=== PATIENT | male | born 1955 | race Caucasian/White ===

== ENCOUNTER → 2022-07-17 | Outpatient (CLI) | payer MEDICARE, OTHER ==
[2022-07-17 10:44] LABS: African American GFR (CKD) >90 (>60 ml/min/1.73 sqM); Blood Urea Nitrogen 11 mg/dL (9-20); Non-African American GFR(CKD) >90 (>60 ml/min/1.73 sqM)
--- NOTE | 2022-07-17 14:04 | CT ---
EXAMINATION TYPE: CT angio neck CT DLP: 409.8 mGycm, Automated exposure control for dose reduction was used. DATE OF EXAM: 07/17/2022 11:45 AM COMPARISON: CT chest 10/10/2009. CLINICAL INDICATION:Male, 67 years old with history of I65.29;, c/o high BP TECHNIQUE: Axially acquired helical CT angiogram of the head and neck was obtained with contrast. Axi al images are supplemented with 3D reconstructions [facility] NAS[facility]ET criteria used. Contrast used:100 mL of Isovue 370 with IV Contrast, Oral contrast used: None. FINDINGS: CTA HEAD: No evidence of acute intracranial hemorrhage, mass effect, or midline shift. The ventricles, sulci, a nd cisterns are unremarkable. The visualized portions of the internal carotid arteries, middle cerebral arteries, anterior cerebral arteries, and posterior cerebral arteries are patent. There is atherosclerosis of the petrous portio n of the internal carotid arteries as well as the intracranial portions of internal carotid arteries. Artifact limits evaluation there is felt to be high-grade stenosis The basilar and vertebral arteries are patent. Intracranial atherosclerosis of the vertebral arteries . There is a diminutive intracranial portion of the left vertebral artery is dominant right vertebral artery. CTA NECK: Right Carotid System: The common carotid and external carotid arteries are patent. There is approximately 50-70% stenosis a t the carotid bifurcation secondary to calcified/noncalcified plaquing. The rest of the internal pavon tid artery is patent. Left Carotid System: The common carotid and external carotid arteries are patent. There is approximately 50% stenosis at t he carotid bifurcation secondary to calcified/noncalcified plaquing. The rest of the internal carotid artery is patent. Vertebral arteries are patent without evidence hemodynamically significant stenosis. Atherosclerotic plaque at the origin of the vertebral arteries on the right and left Limited evaluation secondary to blooming artifact. There is a 2 aortic arch. There is common origin of the left common carotid artery and brachycephalic trunk. The origins of the great vessels are patent. No evidence of hemodynamically significant steno sis. IMPRESSION: 1. No evidence of dissection of the cervical internal carotid arteries or vertebral arteries. 2. No evidence of intracranial intracranial aneurysm. 3. Atherosclerotic plaque predominantly calcified bilaterally with 50-70% stenosis of the right pavon tid bifurcation and 50% stenosis of the left. There is associated severe atherosclerotic calcified pl aque in the intracranial portions of the internal carotid arteries. 4. Bilateral vertebral artery atherosclerosis which limits evaluation for the ostium stenosis. Secon herman to motion of blooming artifact. Vertebral arteries are patent.
== END | disposition home or self-care (01) ==
LOC: RADCTMAIN 09:58
PROVIDERS: ATTEND Surgery
DX: I65.23 Occlusion and stenosis of bilateral carotid arteries (principal); I67.2 Cerebral atherosclerosis
CPT/HCPCS: 82565; 84520; 70498; 36415; Q9967

== ENCOUNTER → 2022-10-31 | Outpatient (CLI) | payer MEDICARE, OTHER ==
[2022-10-31 14:52] LABS: HCT 49.6 % (39.0-53.0); HGB 17.7 gm/dL (13.0-17.5); MCH 34.7 pg (25.0-35.0); MCHC 35.7 g/dL (31.0-37.0); MCV 97.3 fL (80.0-100.0); Mean Platelet Volume 8.3; Platelet Count 178 k/uL (150-450); RDW 13.4 % (11.5-15.5); WBC 10.5 k/uL (3.8-10.6)
[2022-10-31 18:30] LABS: BUN/Creat Ratio 14.56 Ratio (12.00-20.00); Blood Urea Nitrogen 13.1 mg/dL (9.0-27.0); Calcium 9.9 mg/dL (8.7-10.3); Chloride 94 mmol/L (96-109); Glucose 104 mg/dL (70-110); Potassium 4.2 mmol/L (3.5-5.5); Sodium 131 mmol/L (135-145)
== END | disposition home or self-care (01) ==
LOC: LABWHC1 12:46
PROVIDERS: ATTEND Nurse Practitioner Acute Care
DX: Z01.810 Encounter for preprocedural cardiovascular examination (principal); R06.02 Shortness of breath
CPT/HCPCS: 36415; 80048; 85027

== ENCOUNTER 2022-11-04 10:22 | Day surgery (SDC) | payer MEDICARE, OTHER ==
[~2022-11-04 10:22] MED LIST: ALPRAZolam 0.25 MG TAB PO PRN; ALPRAZolam 0.5 MG TAB PO PRN; ASPIRIN 325 MG TAB PO STA; NITROGLYCERIN SL TABS 0.4 MG TAB SUBLINGUAL PRN; SODIUM CHLORIDE 0.9% 1,000 ML in EMPTY BAG 1 BAG IV SCH
[2022-11-04 11:19] LABS: Glucose,Whole Blood 111 mg/dL (70-110)
[2022-11-04 11:29] VITALS: TEMP 98.1
[2022-11-04] MEDS ORDERED: SODIUM CHLORIDE 0.9% 1,000 ML IV ONE (11:29)
[2022-11-04] MEDS ORDERED: ASPIRIN 325 MG TAB PO ONE (11:38)
[2022-11-04] MEDS ORDERED: fentaNYL (PF) 50 MCG/ML 2 ML AMP ONE (12:59)
[2022-11-04] MEDS ORDERED: LIDOCAINE 1% INJ 10MG/ML (20 ML MDV) SQ ONE (13:10)
[2022-11-04] MEDS ORDERED: MIDAZOLAM 2 MG/2 ML VIAL IVP ONE (13:10)
[2022-11-04] MEDS ORDERED: fentaNYL (PF) 50 MCG/ML 2 ML AMP IVP ONE (13:10)
[2022-11-04] MEDS ORDERED: VERAPAMIL SYRINGE (5 MG/10 ML) INTRAARTER ONE (13:14)
[2022-11-04] MEDS ORDERED: HEPARIN SODIUM 1,000 UN/ML (10ML VL) ONE (13:15)
[2022-11-04] MEDS ORDERED: HEPARIN SODIUM 1,000 UN/ML (10ML VL) IV ONE (13:16)
[2022-11-04] MEDS ORDERED: IOPAMIDOL-370 100ML BTL INJ ONE (13:22)
--- NOTE | 2022-11-04 15:54 | P.CARDCATH ---
Description of Procedure: PROCEDURES PERFORMED: Left heart catheterization, bilateral coronary angiography, ultrasound guided arterial access INDICATION: Preoperative clearance, inability to perform stress test, chest pain and dyspnea concerning for unstable angina. CONSENT:I have discussed the risks, benefits and alternative therapies for the above-mentioned procedure and for both sedation/analgesia as well as necessary blood product administration, if indicated, as they pertain to this patient. The patient has indicated understanding and acceptance of the risks and procedures discussed. PROCEDURE: After the risks, benefits and alternatives of the above mentioned procedure explained in detail with the patient, informed consent was obtained. Patient was taken to the catheterization lab and prepped and draped in usual fashion. Ultrasound guidance was used to assess for arterial access. 1% lidocaine was used to anesthetize the right radial artery. A 6-Micronesian sheath was placed in the right radial artery using modified Seldinger technique and ultrasound guidance. Left coronary angiography was performed with a 5-Micronesian JL 3.5 catheter and right coronary angiography was performed with a 5-Micronesian JR5 catheter in various views. A 5-Micronesian FR5 catheter was inserted into the left ventricle and pressure measurements were obtained. The right radial sheath was removed and a TR band was placed with hemostasis achieved. The patient tolerated the procedure well. Patient was transported back to the post catheterization holding area in stable condition. Conscious Sedation: Patient was monitored under the direct supervision of myself for conscious sedation using Versed and fentanyl for a total duration of 15 minutes HEMODYNAMICS: Aorta: 152/76 LV: 148/4, LVEDP 16 SELECTIVE CORONARY ARTERIOGRAPHY: LEFT MAIN: The left main is a large caliber vessel which trifurcates into the LAD, ramus and circumflex. There is distal left main 20% stenosis. LEFT ANTERIOR DESCENDING CORONARY ARTERY: LAD is a large caliber vessel which wraps around to the apex. There are mild luminal irregularities and a long tubular 40-50% mid LAD stenosis after a moderate caliber diagonal 1 branch RAMUS INTERMEDIUS: The ramus is a small caliber vessel and has a mid 60-70% stenosis LEFT CIRCUMFLEX CORONARY ARTERY: Left circumflex is a moderate caliber vessel with mild 20-30% stenoses.. RIGHT CORONARY ARTERY: The right coronary artery is a moderate caliber vessel which gives off a PDA and a small PLV branch and is the dominant vessel. There is mild proximal 20-30% RCA stenosis. FINAL IMPRESSION: 1. CAD as described above including 20% left main, 40-50% mid LAD, small caliber ramus 60s 70%, circumflex 20th 30% and RCA 20-30% stenosis 2. High normal left sided filling pressures PLAN: 1. Aggressive risk factor modification per most recent ACC/AHA guidelines. 2. Continue with medical therapy
[2022-11-04 18:03] VITALS: BP 166/76; PULSE 65; RESP 16
== END 2022-11-04 18:00 | disposition home or self-care (01) ==
LOC: CATHCVL 10:22
PROVIDERS: ATTEND Internal Medicine
DX: I25.10 Atherosclerotic heart disease of native coronary artery without angina pectoris (principal); I10 Essential (primary) hypertension; E11.9 Type 2 diabetes mellitus without complications; F10.90 Alcohol use, unspecified, uncomplicated; Z82.49 Family history of ischemic heart disease and other diseases of the circulatory system; Z79.899 Other long term (current) drug therapy
CPT/HCPCS: 93458; 76937; C1769; C1894; J2250; J2001; J3010; J1644; Q9967

== ENCOUNTER 2022-12-04 08:46 | Day surgery (SDC) | payer MEDICARE, OTHER ==
[2022-11-29 10:57] VITALS: BMI 32.2
--- NOTE | 2022-12-02 12:54 | P.HPOR ---
History of Present Illness H&P Date: 12/02/22 Subjective: This is a 67 year old male that presents today for initial evaluation regarding several year, progressively worsening bilateral hand numbness and tingling with associated weakness. He states all of the fingers are involved and the right side is worse than the left. He has noticed that he started dropping things recently and has even sustained cuts on the thumb and not even noticed it due to absent sensation. He denies any recent injury or inciting event. 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 He also complains of a several month history of right middle finger pain, swelling and associated locking and catching. He has tried bracing with little relief. He states the numbness is now constant in the right and left hands. Physical Examination: LUE: AIN/PIN/Radial/Ulnar/Median motor intact. Radial/Ulnar/Median SILT. 2+/4 Radial/Ulnar pulses palpated. 5/5 APB, 5/5 FDI. Negative Finkelsteins, negative CMC grind, positive Durkan's compression. RUE: AIN/PIN/Radial/Ulnar/Median motor intact. Radial/Ulnar/Median SILT. 2+/4 Radial/Ulnar pulses palpated. 0/5 APB, 5/5 FDI. Negative Finkelsteins, negative CMC grind, positive Durkan's compression. Thenar atrophy present. EMG/NCV: EMG and nerve conduction velocity testing performed on 07/02/2022 demonstrates severe right and moderate left carpal tunnel syndrome. Moderate right and mild left cubital tunnel syndrome. Impression: 1.) B/L carpal tunnel syndrome 2.) B/L cubital tunnel syndrome 3.) Right middle finger trigger finger Plan: Diagnosis and treatment options were discussed with the patient. He has failed conservative treatment and would like to pursue surgical intervention in the form of a right endoscopic vs open carpal tunnel release and right open cubital tunnel release and right middle finger A1 sai release. Risks and benefits of surgery including bleeding, infection, damage to surrounding tissue, need for further surgery, possible need to convert to open procedure, residual numbness due to severe nerve compression findings on EMG/NCV were discussed and the patient wished to go forward with surgery. The patient was agreeable with this plan. Medical clearance is requested due to patients multiple medical comorbidities. CC: Vicenta Singh M.D. -Jesus Barrios DO Orthopedic Hand/Upper Extremity Surgeon Past Medical History Past Medical History: Cancer, COPD, Diabetes Mellitus, Hyperlipidemia, Hypertension Additional Past Medical History / Comment(s): back & knee pain., oxygen at 2 L prn., type 2 diabetes, basal cell skin cancer, carotid artery disease History of Any Multi-Drug Resistant Organisms: None Reported Past Surgical History: Heart Catheterization Additional Past Surgical History / Comment(s): basal cell cancer by his eye with skin graft, colonoscopy, heart cath 11/04/22 Past Anesthesia/Blood Transfusion Reactions: No Reported Reaction Additional Past Anesthesia/Blood Transfusion Reaction / Comment(s): never received general anesthesia Past Psychological History: Anxiety Smoking Status: Current every day smoker Past Alcohol Use History: Daily Additional Past Alcohol Use History / Comment(s): currently smokes a few cigarettes /day, hx of 1 1/2 ppd . drinks approx 6 beers/daily Past Drug Use History: None Reported Medications and Allergies Home Medications Medication Instructions Recorded Confirmed Type Albuterol Sulfate [Proair 2 puff INHALATION Q4-6H PRN 10/30/22 11/29/22 History Respiclick] Budesonide-Formot 160-4.5 Mcg 2 puff INHALATION BID PRN 10/30/22 11/29/22 History [Symbicort 160-4.5 Mcg Inhaler] Dulaglutide [Trulicity] 1.5 mg SQ WE 10/30/22 11/29/22 History Furosemide [Lasix] 20 mg PO DAILY 10/30/22 11/29/22 History Metoprolol Tartrate [Lopressor] 50 mg PO BID 10/30/22 11/29/22 History Primidone 25 mg PO HS 10/30/22 11/29/22 History Rosuvastatin [Crestor] 20 mg PO DAILY 10/30/22 11/29/22 History Umeclidinium [place] [Incruse 1 puff INHALATION DAILY 10/30/22 11/29/22 History Ellipta] amLODIPine [Norvasc] 10 mg PO DAILY 10/30/22 11/29/22 History Albuterol Nebulized [Ventolin 2.5 mg INHALATION Q6H PRN 11/29/22 11/29/22 History Nebulized] Aspirin [Adult Low Dose Aspirin EC] 81 mg PO DAILY 11/29/22 11/29/22 History HYDROcodone/APAP 5-325MG [[place] 1 tab PO TID PRN 11/29/22 11/29/22 History 5-325] Losartan Potassium 100 mg PO DAILY 11/29/22 11/29/22 History Vitamin B Complex 1 each PO DAILY 11/29/22 11/29/22 History Allergies Allergy/AdvReac Type Severity Reaction Status Date / Time No Known Allergies Allergy Verified 11/29/22 10:43 Physical Examination Osteopathic Statement: *. No significant issues noted on an osteopathic structural exam other than those noted in the History and Physical/Consult.
[~2022-12-04 08:46] MED LIST changes: -ALPRAZolam 0.25 MG TAB PO PRN; -ALPRAZolam 0.5 MG TAB PO PRN; -ASPIRIN 325 MG TAB PO STA; -NITROGLYCERIN SL TABS 0.4 MG TAB SUBLINGUAL PRN; +Pre Op ABX Message 1 EACH MISC MISCELLANE ONE; -SODIUM CHLORIDE 0.9% 1,000 ML in EMPTY BAG 1 BAG IV SCH
[2022-12-04] MEDS ORDERED: LIDOCAINE 1% (10MG/ML) FOR IV START INTRADERMA PRN (08:58)
[2022-12-04] MEDS ORDERED: LACTATED RINGERS 1,000 ML IV SCH (08:58)
[2022-12-04] MEDS ORDERED: ONDANSETRON 4 MG/2 ML VIAL IVP ONE (08:58)
[2022-12-04] MEDS ORDERED: HYDROmorphone 0.5 MG/0.5 ML SYRINGE IVP PRN (08:58)
[2022-12-04] MEDS ORDERED: droPERidol 5 MG/2 ML VIAL IVP ONE (08:58)
[2022-12-04] MEDS ORDERED: DEXAMETHASONE SOD PHOSPHATE 4 MG/ML 1 ML VIAL IV ONE (08:58)
[2022-12-04] MEDS ORDERED: LIDOCAINE 2% INJ 20 MG/ML (2 ML VIAL) ONE (09:33)
[2022-12-04] MEDS ORDERED: fentaNYL (PF) 50 MCG/ML 2 ML AMP ONE (09:33)
[2022-12-04] MEDS ORDERED: PROPOFOL 10 MG/ML 20 ML VIAL IV ONE (09:33)
[2022-12-04] MEDS ORDERED: MIDAZOLAM 2 MG/2 ML VIAL ONE (09:33)
[2022-12-04] MEDS ORDERED: HYDROmorphone (PF) 1 MG/ML ONE (09:33)
[2022-12-04] MEDS ORDERED: BUPIVACAINE (PF) 0.5% 30 ML VIAL SQ ONE ×3 (09:56→10:23)
[2022-12-04 10:11] LABS: Glucose,Whole Blood 120 mg/dL (70-110)
[2022-12-04 10:41] LABS: Glucose,Whole Blood 118 mg/dL (70-110)
[2022-12-04 10:48] VITALS: TEMP 97.1
--- NOTE | 2022-12-04 10:53 | P.OP ---
Date of Procedure: 12/04/22 Preoperative Diagnosis: 1.) Right carpal tunnel syndrome 2.) Right cubital tunnel syndrome 3.) Right middle finger trigger finger Postoperative Diagnosis: 1.) Right carpal tunnel syndrome 2.) Right cubital tunnel syndrome 3.) Right middle finger trigger finger Procedure(s) Performed: 1.) Right endoscopic carpal tunnel release 2.) Right open cubital tunnel release, in situ 3.) Right middle finger trigger finger A1 sai release Anesthesia: CONSTANTINA Surgeon: Jesus Barrios Rn New Grad #1: Rob Morales Estimated Blood Loss (ml): 0 Pathology: none sent Condition: stable Disposition: PACU Description of Procedure: This is a 67 year old male who presents today for a right endoscopic carpal tunnel release and right middle finger A1 sai release and right open cubital tunnel release after having failed conservative treatment in the past. Risks and benefits of surgery were discussed with the patient including bleeding, damage to surrounding tissue, infection, need to convert to open procedure, need for further surgery as well as risks of anesthesia including pulmonary embolism and even and the patient wished to proceed with surgical intervention. The patients was seen in the pre-operative area by myself. Consent and H&P were completed and updated. The correct extremity was marked in the pre-operative area by myself and all other questions were answered. Operative Narrative: The patient was brought to the operating room by the department of anesthesia. They remained on the portable stretcher and a rolling hand table was brought to the side of the operative extremity. Pre-operative time out was performed indicating the correct patient, procedure and laterality. All in the room agreed. The patient was then drifted off to sleep by the department of anesthesia. MAC anesthesia was utilized and a 50:50 mixture of 1% Lidocaine and 0.5% bupivacaine was injected into the subcutaneous tissues of the palmar skin, 10ccs total. A nonsterile tourniquet was then applied to the operative extremity and the right upper extremity was then prepped and draped in normal sterile fashion. The operative extremity was the exsanguinated with an esmarch bandage and the tourniquet was inflated to 250mmHg. 15 blade scalpel was utilized to make a transverse incision on the palmar skin just ulnar to the palmaris longus tendon at the level of the distal wrist crease. Ragnell retractor was then placed radially and blunt dissection was performed to reveal the distal forearm fascia. This was lifted with fine Rahul pick ups and Littler tenotomy scissors were then used to open the forearm fascia transversely and a double skin hook was then placed. Hamate finder was placed into the carpal tunnel and then sequential sized dilators were inserted followed by the synovial elevator to separate the flexor tenosynovium from the undersurface of the transverse carpal ligament and a washboard texture was felt. The MicroAire endoscopic carpal tunnel release system gun was the then inserted into the carpal tunnel hugging the deep portion of the transverse carpal ligament in line with the base of the ring finger. Transverse fibers of the ligament were directly visualized. Pressure was applied on the palm to reveal the distal extent of the transverse carpal ligament. The blade was then deployed and the distal half of the transverse carpal ligament was released. The scope was then brought distal again and remaining transverse fibers were incised with the blade. The proximal half of the transverse carpal ligament was then divided and again the scope was advanced distal and remaining transverse fibers were incised with the blade. The radial and ulnar leaflets were directly visualized and mobile consistent with complete release. Tenotomy scissors were then utilized to release the remaining distal forearm fascia under direct visualization taking care to preserve the palmar cutaneous branch of the median nerve. Attention was then drawn to the middle finger Transverse incision was made over the A1 sai. Blunt dissection was taken down to the A1 sai and radial and ulnar digital nerves were identified and carefully retracted. The A1 sai was then released from proximally to distally with scissors. The finger was then ranged and no locking was appreciated. Attention was brought to the medial elbow. 15 blade scalpel was used to incise skin in between the medial epicondyle and olecranon in a curvlinear and longitudinal fashion. Blunt dissection was taken down through subcutaneous tissue with tenotomy scissors and branches of the MABCN were identified and protected. Dissection was carried proximally and the ulnar nerve was identified and released in it's entirety from surrounding soft tissue. Dissection was then carried distally and freitas's ligament was released at the medial epicondyle, the nerve appeared compressed at this location. Dissection was then carried out further distal and the fascia of the two heads of the FCU were incised and the ulnar nerve was decompressed with Padmini and tenotomy scissors and appeared to be tension free. The elbow was the flexed and extended and the ulnar nerve appeared to be stable in a tension free manner. 20cc's of 0.5% bupivacaine was injected into the subcutaneous tissues of the palmar skin and medial elbow. Skin closure was performed with interrupted 4-0 Monocryl suture followed by 4-0 nylon suture in the hand. Sterile dressing was applied consisting of adaptic, 4x4s, Webril, and an lino bandage. Tourniquet was let down and the hand immediately was well perfused. The patient was then woken by the department of anesthesia and transferred to PACU in stable condition. Rob DIAZ was present for the case in its entirety and assisted in major portions of the case and protection of vital neurovascular structures. Jesus Barrios D.O. Orthopedic Hand/Upper Extremity Surgeon
[2022-12-04 11:36] VITALS: RESP 18
[2022-12-04 11:52] VITALS: BP 158/82; PULSE 69
== END 2022-12-04 12:05 | disposition home or self-care (01) ==
LOC: OR 08:46
PROVIDERS: ATTEND Orthopaedic Surgery Hand Surgery
DX: G56.03 Carpal tunnel syndrome, bilateral upper limbs (principal); G56.23 Lesion of ulnar nerve, bilateral upper limbs; M65.331 Trigger finger, right middle finger; E11.9 Type 2 diabetes mellitus without complications; E78.5 Hyperlipidemia, unspecified; I10 Essential (primary) hypertension; J44.9 Chronic obstructive pulmonary disease, unspecified; F17.210 Nicotine dependence, cigarettes, uncomplicated; F10.90 Alcohol use, unspecified, uncomplicated; Z85.828 Personal history of other malignant neoplasm of skin; Z98.890 Other specified postprocedural states; Z79.51 Long term (current) use of inhaled steroids
CPT/HCPCS: 29848; 64718; 26055; J2250; J1100; J2405; J3010; J1170; J2704; J2001; J0665

== ENCOUNTER → 2023-02-28 | Outpatient (CLI) | payer MEDICARE, OTHER ==
[2023-02-28 14:07] LABS: African American GFR (CKD) >90 (>60 ml/min/1.73 sqM); Blood Urea Nitrogen 14 mg/dL (9-20); Non-African American GFR(CKD) >90 (>60 ml/min/1.73 sqM)
--- NOTE | 2023-02-28 15:26 | CT ---
EXAMINATION TYPE: CT angio neck DATE OF EXAM: 02/28/2023 HISTORY: carotid stenosis COMPARISON: 07/17/2022 CT DLP: 364.3 mGycm. Automated Exposure Control for Dose Reduction was Utilized. TECHNIQUE: CTA scan of the head and neck is performed with IV Contrast, patient injected with 100 mL of Isovue 370, axial images are obtained, coronal and sagittal reformatted images are reviewed. 3D r econstructed images are created on an independent workstation and reviewed. FINDINGS: The brachiocephalic origins are widely patent. There is marked calcified plaque formation in the carotid bifurcations and proximal internal carotid arteries resulting in severe greater than 70% proximal internal carotid artery stenoses bilaterally. The vertebral arteries are widely patent and the right vertebral artery slightly dominant to the left . There is calcification involving the petrous portions of the internal carotid arteries. There is a se sunshine stenosis in the right carotid siphon which is not imaged in its entirety. IMPRESSION: 1. Severe greater than 70% proximal internal carotid artery stenoses. 2. Severe stenosis of the right carotid siphon. 3. Interval worsening of the carotid stenoses bilaterally. Previously, both stenoses were less than 70%
== END | disposition home or self-care (01) ==
LOC: RADCTMAIN 13:27
PROVIDERS: ATTEND Surgery
DX: I65.23 Occlusion and stenosis of bilateral carotid arteries (principal)
CPT/HCPCS: 82565; 84520; 70498; 36415; Q9967

== ENCOUNTER → 2023-04-08 | Outpatient (CLI) | payer MEDICARE, OTHER ==
[2023-04-08 12:24] LABS: African American GFR (CKD) >90 (>60 ml/min/1.73 sqM); Blood Urea Nitrogen 11 mg/dL (9-20); Non-African American GFR(CKD) >90 (>60 ml/min/1.73 sqM)
--- NOTE | 2023-04-13 08:32 | CT ---
EXAMINATION TYPE: CT angio neck DATE OF EXAM: 04/08/2023 1:39 PM CLINICAL INDICATION:Male, 68 years old with history of I65.29 OCCLUSION AND STENOSIS; OCCLUSION AND S TENOSIS COMPARISON: CT angiogram neck 02/28/2023 and 07/17/2022 TECHNIQUE: Axially acquired helical CT Angiogram of the Neck was obtained with and without contrast u tilizing 75 mL of Isovue-370 administered intravenously. Axial images are supplemented with coronal a nd sagittal MIP reconstructions. 3D reconstructions were also performed and were post-processed at an independent workstation. Estimated carotid stenosis was calculated using the NASCET criteria. CT DLP: 440.8 mGycm, Automated exposure control for dose reduction was used. Contrast used:85ml mL of Isovue 300 with IV Contrast, Oral contrast used: , None. FINDINGS: Aortic arch is patent without evidence of dissection flap. Bovine arch configuration with a common or igin of the brachiocephalic artery and left common carotid. Mild/moderate mixed atherosclerotic disease of the aorta. Ascending aorta is ectatic up to 3.5 cm. De scending aorta is 2.5 cm. Atherosclerotic disease of the proximal branch vessels without significant stenosis seen. Calcified plaque at the origins of both vertebral artery origins limits accurate measurements of poss ible stenosis, however seems to at least 50% bilaterally. Vertebrals thereafter appear patent through out the neck. The right is dominant. There is mixed primarily calcified plaque in the V4 segment of t he right vertebral, with maximal diameter stenosis about 50%. There is moderate primarily calcified p laque in the proximal V4 segment on the left without significant stenosis. In its mid to distal porti on however there appears to be a significant stenosis around image 128 series 4, with the vessel ther eafter diminutive before entering into the basilar artery. Basilar appears normally patent, bifurcati on is patent without evidence of basilar tip aneurysm. Proximal jacquard card lacer appear patent as seen. Pulmonary trunk is 3.3 cm, considered enlarged and can be seen with pulmonary hypertension. No dissection or pseudoaneurysm seen throughout the carotid or vertebral arteries. Right Carotid System: Common carotid is normally patent to the bifurcation. There is heavy mixed primarily calcified plaque in the distal common carotid and proximal internal carotid with the ICA lumen appearing maximally na rrowed to 1.4 mm. Compared to the more normal distal ICA measurement 5.2 mm, this is a 73% diameter s tenosis. The remainder of the cervical ICA shows mild scattered plaque without significant stenosis. There is diffuse atherosclerotic calcification throughout the petrous portion with under 50% stenosis . Heavy calcification in the cavernous portion with degree of stenosis difficult to precisely measure but seems over 50%. Supraclinoid ICA appears patent as seen with the right MCA and TONG only partiall y imaged but appear patent. Mild to moderate mixed plaque at the ECA origin with under 50% stenosis. Left Carotid System: Mild disease in the proximal common carotid artery without significant stenosis seen. There appears t o be soft plaque in the mid common carotid with under 50% stenosis. Mixed plaque predominantly calcif ied in the mid to distal common carotid with heavy calcification at the carotid bifurcation and proxi mal ICAr ICA appears maximally narrowed to 1.1 mm. Compared to the more normal distal ICA measurement 5.7 mm, this is an 81% diameter stenosis. ICA is then patent to the skull base, with mild atheroscle rotic disease. There is diffuse atherosclerotic calcification throughout the petrous portion with und er 50% stenosis. Heavy calcification of the cavernous portion with degree of stenosis difficult to pr ecisely measure but does not appear greater than 50%. Supraclinoid ICA appears patent. MCA and TONG ar e only partially imaged but grossly patent. Mild to moderate mixed plaque at the ECA origin with unde r 50% stenosis. Other: Grossly unremarkable neck soft tissues. Mild emphysematous changes and scarring in the lung apices. No consolidation or pneumothorax. There i s mild to moderate multilevel degenerative disk disease and facet arthrosis in the cervical spine wit h mild to moderate neural foraminal stenoses and no critical bony canal stenosis seen. Straightening of the normal cervical lordosis likely related to degenerative changes. Patient is edentulous. No susan dence of acute bony pathology. IMPRESSION: CTA neck: 1. Diffuse atherosclerotic disease, as described. 2. Atherosclerotic plaque, mostly calcified bilaterally, with 73% stenosis of the right proximal ICA and 81% stenosis of the left proximal ICA. 3. Heavy calcified plaque in the visualized petrous and cavernous portions of the internal carotid a rteries. 4. Calcified plaque at the origins of both vertebral artery origins limits accurate measurements of possible stenosis, however seems to at least 50% bilaterally. 5. Mixed primarily calcified plaque in the intracranial segment of the right vertebral, with maximal diameter stenosis about 50%. 6. Proximal intracranial left vertebral artery shows moderate primarily calcified plaque without sig nificant stenosis. In its mid to distal portion however there appears to be a significant stenosis, w ith the vessel thereafter diminutive before entering into the basilar artery.
== END | disposition home or self-care (01) ==
LOC: RADCTMAIN 11:51
PROVIDERS: ATTEND Surgery
DX: I65.23 Occlusion and stenosis of bilateral carotid arteries (principal)
CPT/HCPCS: 82565; 84520; 70498; 36415; Q9967

== ENCOUNTER → 2023-06-04 | Outpatient (CLI) | payer MEDICARE ==
[2023-06-04 15:50] LABS: Basophils # (A) 0.07 X 10*3/uL (0.00-0.10); Basophils % (A) 0.8 %; Eosinophils # (A) 0.08 X 10*3/uL (0.04-0.35); Eosinophils % (A) 0.9 %; HCT 46.5 % (39.6-50.0); HGB 16.4 g/dL (13.0-17.0); Lymphocytes # (A) 1.64 X 10*3/uL (0.90-5.00); MCH 32.6 pg (27.0-32.0); MCHC 35.3 g/dL (32.0-37.0); MCV 92.4 FL (80.0-97.0); Mean Platelet Volume 10.9 FL (9.5-12.2); Monocytes # (A) 0.87 X 10*3/uL (0.20-1.00); Monocytes % (A) 9.5 %; NRBC Per 100 WBC 0 X 10*3/uL (0.00-0.01); Neutrophils # (A) 6.44 X 10*3/uL (1.80-7.70); Neutrophils % (A) 70.6 %; Platelet Count 208 X 10*3/uL (140-440); RBC 5.03 X 10*6/uL (4.40-5.60); RDW 12.6 % (11.5-14.5); WBC 9.12 X 10*3/uL (4.50-10.00)
== END | disposition home or self-care (01) ==
LOC: LABPAT 09:56
PROVIDERS: ATTEND Surgery
DX: Z01.812 Encounter for preprocedural laboratory examination (principal); I65.29 Occlusion and stenosis of unspecified carotid artery
CPT/HCPCS: 36415; 84132; 85025; 86850; 86900; 86901

== ENCOUNTER 2023-06-05 05:41 | Inpatient (IN) | payer MEDICARE, OTHER ==
[2023-06-03 14:34] VITALS: BMI 31.1
[2023-06-05] MEDS: LIDOCAINE 1% (10MG/ML) FOR IV START INTRADERMA PRN (06:45)
[2023-06-05] MEDS: LACTATED RINGERS 1,000 ML IV SCH (06:45)
[2023-06-05] MEDS: DEXAMETHASONE SOD PHOSPHATE 4 MG/ML 1 ML VIAL IV ONE (06:46)
[2023-06-05] MEDS: ONDANSETRON 4 MG/2 ML VIAL IVP ONE (06:47)
[2023-06-05 06:52] LABS: Glucose,Whole Blood 127 mg/dL (70-110)
[2023-06-05] MEDS: MIDAZOLAM 2 MG/2 ML VIAL IV PRN (06:57)
[2023-06-05] MEDS ORDERED: HYDROmorphone 0.5 MG/0.5 ML SYRINGE IVP PRN (07:00)
[2023-06-05] MEDS ORDERED: PROTAMINE SULFATE 10 MG/ML 5 ML VIAL ONE (07:22)
[2023-06-05] MEDS ORDERED: SUCCINYLCHOLINE CHLORIDE 200 MG/10 ML VIAL IV ONE (07:22)
[2023-06-05] MEDS ORDERED: PHENYLEPHRINE 10 MG/ML VIAL ONE (07:22)
[2023-06-05] MEDS ORDERED: HEPARIN SODIUM,PORCINE 10,000 UNIT/ML 1 ML VIAL ONE (07:22)
[2023-06-05] MEDS ORDERED: ROCURONIUM 10 MG/ML (5 ML VIAL) IV ONE (07:22)
[2023-06-05] MEDS ORDERED: LIDOCAINE 1% INJ 10MG/ML (20 ML MDV) ONE (07:22)
[2023-06-05] MEDS ORDERED: LABETALOL 5 MG/ML VIAL MDV ONE (07:22)
[2023-06-05] MEDS ORDERED: SUGAMMADEX SODIUM 200 MG/2 ML SDV IV ONE (07:22)
[2023-06-05] MEDS ORDERED: fentaNYL (PF) 50 MCG/ML 2 ML AMP ONE (07:22)
[2023-06-05] MEDS ORDERED: PHENYLEPHRINE-0.9% NACL SYG 1,000 MCG/10 ML SYRINGE ONE (07:22)
[2023-06-05] MEDS ORDERED: PROPOFOL 10 MG/ML 20 ML VIAL IV ONE (07:22)
[2023-06-05] MEDS ORDERED: GLYCOPYRROLATE 0.2 MG/ML 2 ML VIAL ONE (07:22)
[2023-06-05] MEDS: THROMBIN (BOVINE) 5,000 UNIT VIAL TOPICAL ONE (08:35)
[2023-06-05] MEDS: LIDOCAINE 1% INJ 10MG/ML (20 ML MDV) SQ ONE (08:35)
[2023-06-05] MEDS: GELATIN SPONGE,ABSORB (LARGE) 1 EACH SPONGE TOPICAL ONE (08:35)
[2023-06-05] MEDS: LACTATED RINGERS 1,000 ML IV ONE (10:21)
[2023-06-05] MEDS ORDERED: BENZOCAINE/MENTHOL LOZENG 1 EACH LOZENGE MUCOUS MEM PRN (10:29)
[2023-06-05] MEDS ORDERED: MAG HYDROX/AL HYDROX/SIMETH 30 ML CUP PO PRN (10:29)
--- NOTE | 2023-06-05 10:29 | P.OP ---
Date of Procedure: 06/05/23 Description of Procedure: Preoperative Diagnosis: High-grade left internal carotid artery stenosis Postoperative Diagnosis: Same Procedure: Left carotid endarterectomy with patch angioplasty Anesthesia: GET Surgeon: Shabnam Chang DO Estimated Blood Loss (ml): 50 cc IV Fluids: See records Urine Output: See records Specimen: Left carotid plaque Condition: stable Disposition: PACU Findings and indications: Patient is a 68-year-old male with peripheral vascular disease who on workup and imaging was found to have high-grade left internal carotid artery stenosis and due to this he was recommended to undergo intervention. Due to the anatomy, an open carotid endarterectomy was recommended. Risks and benefits have been discussed he seemingly understood and was willing to proceed. Procedure in detail: After written informed consent was obtained the patient the patient is brought to the operative suite and laid in a supine position. The area of the neck was prepped and draped in usual sterile fashion after appropriate anesthetic was performed per the anesthesiologist. A timeout was performed in normal fashion antibiotics were administered prior to incision. An oblique incision was then created just anterior to the sternocleidomastoid musculature with a 10 blade scalpel and dissection was carried down to the carotid sheath. The carotid sheath was then entered after facial vein was located and suture ligated in normal fashion. This was time-consuming and difficult due to the significantly shortened neck and deep carotid. The the common carotid, internal carotid, external carotid and superior thyroid arteries were located and dissected free in a meticulous fashion circumferentially and controlled with vessel loops. Attention was then placed to locating the vagus nerve which was directly adherent to the carotid, as well as hypoglossal nerve which were both spared. Once controlled, patient was administered heparin and followed with ACTs for appropriate heparinization. Once ACT was appropriate, the proximal and distal aspects of the dissection were then controlled with vascular clamps. Arteriotomy was then created with 11 blade scalpel and extended with Sheffield Del Toro scissors. Cerebral oximetry was used and found to have no significant drop therefore No shunt was required. An endarterectomy was then performed with a Spencer elevator. The plaque was transected proximally and then feathered at the distal aspect of the internal carotid artery and removed. The area was copiously irrigated with heparinized saline and all free debris was removed. A 0.8 x 8 cm bovine pericardial patch was then chosen and patch angioplasty was performed with 6-0 Prolene suture in a running fashion. Prior to last sutures being placed the inflow was released flushing any free debris out of the patch. This was reclamped and the internal carotid artery was released revealing good brisk flow and was once again reclamped. The external carotid and superior thyroid artery were then released followed by the common carotid artery to allow any free debris to be flushed into the external system. Final sutures were placed and secured. Internal carotid artery control was then released. Good pulsatile flow was noted through the patch and a Doppler was utilized demonstrating good brisk flow into the internal, external carotid arteries without any signs of obstruction. Hemostasis was then assured with interrupted sutures of 6-0 Prolene as well as thrombin and Gelfoam. A 10-Wolof NORA drain was then placed in normal fashion and secured with 3-0 nylon suture. The incision was then closed in a multilayer fashion after hemostasis was assured. The skin was then cleansed and dressings were placed. Patient tolerated the procedure well and was following commands and moving all extremities. At the time of wake-up he was thrashing significantly and moving his neck however there is no apparent hematoma created at this time. And the drain remains minimal. Patient was then sent to PACU for recovery.
[2023-06-05] MEDS: HYDROmorphone 0.5 MG/0.5 ML SYRINGE IVP ONE ×2 (11:00→11:18)
[2023-06-05 11:28] LABS: Glucose,Whole Blood 152 mg/dL (70-110)
[2023-06-05] MEDS: HYDROcodone/APAP 5-325MG 1 EACH TAB PO PRN (13:18)
--- NOTE | 2023-06-05 13:18 | P.ANPRN ---
Procedure Note - Anesthesia - Invasive Line Right Arterial Line Time Out Performed: Yes (0705) Date of Procedure: 06/05/23 Time of Procedure: 07:05 Location of Patient: PreOp Preparation: Sterile Prep, Sterile Dressing Arterial Line Location: Radial Ultrasound Used: No Narrative: Invasive line placement per sterile protocol utilized. A 20-gauge right radial cannulation placed with one attempt. Secured with suture, and Biopatch disc placed, and secured with Tegaderm.
[2023-06-05] MEDS ORDERED: ALBUTEROL NEBULIZED 2.5 MG/3 ML INHALATION PRN (13:21)
[2023-06-05] MEDS: ALBUTEROL NEBULIZED 2.5 MG/3 ML INHALATION PRN (15:51)
[2023-06-05] MEDS: MORPHINE SULFATE 2 MG/ML SYRINGE IVP PRN (15:55)
[2023-06-05] MEDS: HEPARIN SODIUM,PORCINE 5,000 UNIT/ML 1 ML VIAL SQ SCH (15:56)
--- NOTE | 2023-06-05 16:31 | P.CONS ---
History of Present Illness - Reason for Consult Consult date: 06/05/23 - History of Present Illness Angel Roy, is a 68-year-old male who was admitted to [facility] by Dr. Chang and underwent left carotid endarterectomy on 06/05/2023 i his past medical history significant for history of hypertension, history of hyperlipidemia, history of COPD, history of basal cell carcinoma, history of diabetes mellitus type 2, history of gastroesophageal reflux disease, history of vitamin D deficiency. On review of systems patient was evaluated on the medical floor postoperatively he is alert and oriented 3 in no apparent distress he denies any complaints at this time there is no fever or chills no headache or dizziness no chest pain no shortness of breath no cough no nausea or vomiting no abdominal pain no diarrhea no blood in the stools no burning with urination no frequency or urgency and no hematuria. His no weakness or numbness in any of the extremities there is no change in vision speech or gait. Past Medical History Past Medical History: Cancer, COPD, Diabetes Mellitus, Hyperlipidemia, Hypertension Additional Past Medical History / Comment(s): blocked arteries, basal cell skin ca ,uses home O2 @ 2L NC as needed at nighttime. History of Any Multi-Drug Resistant Organisms: None Reported Past Surgical History: Heart Catheterization Additional Past Surgical History / Comment(s): basal cell by eye with skin graft, colonoscopy Past Anesthesia/Blood Transfusion Reactions: No Reported Reaction Additional Past Anesthesia/Blood Transfusion Reaction / Comm: no blood tx hx Smoking Status: Current every day smoker - Past Family History Brother(s) Family Medical History: Cancer Additional Family Medical History / Comment(s): 2 brother prostate, 1 copd pulm htn all Medications and Allergies Home Medications Medication Instructions Recorded Confirmed Type Albuterol Sulfate [Proair 2 puff INHALATION Q4-6H PRN 10/30/22 06/05/23 History Respiclick] Dulaglutide [Trulicity] 1.5 mg SQ WE 10/30/22 06/05/23 History Furosemide [Lasix] 20 mg PO DAILY 10/30/22 06/05/23 History Metoprolol Tartrate [Lopressor] 50 mg PO BID 10/30/22 06/05/23 History Primidone 50 mg PO HS 10/30/22 06/05/23 History Rosuvastatin [Crestor] 20 mg PO DAILY 10/30/22 06/05/23 History amLODIPine [Norvasc] 10 mg PO QAM 10/30/22 06/05/23 History Albuterol Nebulized [Ventolin 2.5 mg INHALATION TID PRN 11/29/22 06/05/23 History Nebulized] Aspirin [Adult Low Dose Aspirin EC] 81 mg PO HS 11/29/22 06/05/23 History HYDROcodone/APAP 5-325MG [[place] 1 tab PO TID PRN 11/29/22 06/05/23 History 5-325] Losartan Potassium 100 mg PO QAM 11/29/22 06/05/23 History Umeclidinium [place] [Incruse 1 puff INHALATION QAM 06/03/23 06/05/23 History Ellipta] Allergies Allergy/AdvReac Type Severity Reaction Status Date / Time iodine Allergy Nausea & Verified 06/03/23 14:09 Vomiting Physical Exam Vitals: Vital Signs Temp Pulse Resp BP BP Pulse Ox 06/05/23 11:14 67 16 139/69 92 L 06/05/23 10:59 68 16 144/73 93 L 06/05/23 10:42 73 16 155/80 93 L 06/05/23 10:27 98.2 F 75 16 158/60 96 06/05/23 07:09 52 L 18 158/72 95 06/05/23 06:28 97.4 F L 52 L 22 160/75 142/68 97 Intake and Output 06/04/23 06/05/23 06/05/23 22:59 06:59 14:59 Intake Total 200 1250 Output Total 400 Balance 200 850 Intake: IV 200 1250 Output: Urine 350 Estimated Blood Loss 50 Other: Weight 95.5 kg In general patient is alert and oriented x 3 in no distress HEENT head normocephalic and atraumatic Neck is supple no JVD no goiter no lymphadenopathy no carotid bruit, there is a drainage tube from the left neck. Chest examination is clear to auscultation no crackles no wheezing Cardiac exam reveals regular heart sounds S1 and S2 no gallops no murmurs Abdomen is soft nontender no organomegaly with normal bowel sounds Extremity exam reveals no edema no cyanosis or clubbing Neurological examination reveals no gross focal deficits Results Labs: Abnormal Lab Results - Last 24 Hours (Table) 06/05/23 Range/Units 06:43 POC Glucose (mg/dL) 127 H (70-110) mg/dL Assessment and Plan Plan: Critical stenosis left carotid artery status post left carotid endarterectomy on 06/05/2023 Underlying history of hypertension Underlying history of hyperlipidemia Underlying history of COPD Underlying history of diabetes mellitus type 2 Underlying history of basal cell carcinoma with surgical removal and skin graft on left side of the face Underlying history of coronary artery disease with previous history of cardiac catheterization Prolonged history of tobacco abuse At this time patient is admitted to medical floor Home medications reviewed and reordered Will follow during this hospitalization for medical management
[2023-06-05 16:49] LABS: Glucose,Whole Blood 259 mg/dL (70-110)
[2023-06-05] MEDS: INSULIN ASPART (NovoLOG) 100 UNIT/ML VIAL SQ SCH (17:01)
[2023-06-05 20:10] LABS: Glucose,Whole Blood 177 mg/dL (70-110)
[2023-06-05] MEDS: ASPIRIN 81 MG PO SCH (20:34)
[2023-06-05] MEDS: PRIMIDONE 50 MG TAB PO SCH (20:34)
[2023-06-05] MEDS: METOPROLOL TARTRATE 50 MG TAB PO SCH (20:35)
[2023-06-05] MEDS: NICOTINE 21MG/24HR PATCH TRANSDERM SCH (20:35)
[2023-06-06 06:06] LABS: Glucose,Whole Blood 138 mg/dL (70-110)
[2023-06-06] MEDS: CLOPIDOGREL 75 MG TAB PO SCH (08:15)
[2023-06-06] MEDS: ATORVASTATIN 40 MG TAB PO SCH (08:15)
[2023-06-06] MEDS: FUROSEMIDE 20 MG TAB PO SCH (08:15)
[2023-06-06] MEDS: LOSARTAN 50 MG TAB PO SCH (08:15)
[2023-06-06] MEDS: amLODIPine 10 MG TAB PO SCH (08:15)
[2023-06-06] MEDS: IPRATROPIUM 0.5 MG/2.5 ML NEBU INHALATION SCH (08:25)
[2023-06-06] MEDS ORDERED: ASPIRIN 81 MG PO SCH (09:00)
[2023-06-06 09:30] LABS: Basophils % (A) 0 %; Eosinophils # (A) 0.1 k/uL (0-0.7); Eosinophils % (A) 1 %; HCT 44.2 % (39.0-53.0); HGB 15.6 gm/dL (13.0-17.5); Lymphocytes # (A) 1.5 k/uL (1.0-4.8); Lymphocytes % (A) 11 %; MCH 33.7 pg (25.0-35.0); MCHC 35.2 g/dL (31.0-37.0); MCV 95.7 fL (80.0-100.0); Mean Platelet Volume 8.8; Monocytes % (A) 7 %; Neutrophils # (A) 10.5 k/uL (1.3-7.7); Neutrophils % (A) 80 %; Platelet Count 187 k/uL (150-450); RBC 4.62 m/uL (4.30-5.90); RDW 13.3 % (11.5-15.5); WBC 13.3 k/uL (3.8-10.6)
[2023-06-06 09:42] LABS: ALT 18 U/L (4-49); AST 27 U/L (17-59); African American GFR (CKD) >90 (>60 ml/min/1.73 sqM); Albumin 4.1 g/dL (3.5-5.0); Alkaline Phosphatase 90 U/L (38-126); Anion Gap 7 mmol/L; Blood Urea Nitrogen 15 mg/dL (9-20); Calcium 9.2 mg/dL (8.4-10.2); Carbon Dioxide 29 mmol/L (22-30); Chloride 95 mmol/L (98-107); Glucose 131 mg/dL (74-99); Non-African American GFR(CKD) >90 (>60 ml/min/1.73 sqM); Potassium 4.8 mmol/L (3.5-5.1); Sodium 131 mmol/L (137-145); Total Bilirubin 0.5 mg/dL (0.2-1.3); Total Protein 6.7 g/dL (6.3-8.2)
--- NOTE | 2023-06-06 10:46 | P.PN ---
Subjective Progress Note Date: 06/06/23 Principal diagnosis: Carotid stenosis Patient is seen and examined today as a follow-up. He is postop day #1 for left carotid endarterectomy. He has a history of hypertension and blood pressures have been mildly elevated. Medical team is following for blood pressure management. Patient denies any focal deficits. He has been up and ambulating. He has been voiding. No difficulty with swallowing. He did have about 75 mL of sanguinous drainage from NORA drain through the night. Another 20 mL this morning. He denies any shortness of breath or chest pain. He has been af ebrile. Objective - Vital Signs Vital signs: Vital Signs Temp 97.4 F L 06/06/23 08:15 Pulse 70 06/06/23 08:36 Resp 18 06/06/23 08:15 BP 180/78 06/06/23 08:15 Pulse Ox 94 L 06/06/23 08:15 FiO2 Intake & Output 06/05/23 06/06/23 06/06/23 18:59 06:59 18:59 Intake Total 1950 720 Output Total 1080 75 Balance 870 -75 720 Weight 95.5 kg Intake: IV 1950 Oral 720 Output: Drainage 30 75 Left Neck 30 75 Urine 1000 Uretheral (Chang) 250 Estimated Blood Loss 50 Other: Voiding Method Indwelling Catheter Toilet Indwelling Catheter # Voids 1 - Exam General appearance: The patient is alert, oriented, appears in no acute distress. HET: Head is normocephalic and atraumatic. Pupils are equal and reactive. Neck: Supple. Left neck with incision well-approximated, mild swelling surrou nding incision, soft. NORA drain in place with sanguinous drainage. Heart: Regular. Lungs: Equal expansion, normal respiratory effort. Abdomen: Soft, nontender, nondistended. Extremities: Normal skin color and turgor. Neurological: No focal deficits. Strength and sensation are grossly intact. - Labs CBC & Chem 7: 06/06/23 08:57 06/06/23 08:57 Labs: Abnormal Lab Results - Last 24 Hours (Table) 06/05/23 06/05/23 06/05/23 Range/Units 11:25 16:47 20:09 POC Glucose (mg/dL) 152 H 259 H 177 H (70-110) mg/dL 06/06/23 Range/Units 06:05 POC Glucose (mg/dL) 138 H (70-110) mg/dL Assessment and Plan Assessment: 1. High-grade left internal carotid artery stenosis status post left carotid endarterectomy with patch angioplasty 2. Hypertension 3. COPD, uses oxygen at home generally at night as needed 4. Diabetes mellitus Plan: 1. Encourage ambulation 2. Keep NORA drain in for now, monitor output 3. Recommend smoking cessation, nicotine patch currently on. Patient declines needing any for discharge as he states he has some at home 4. Monitor blood pressures, defer medical management to primary medical team 5. Possible discharge later today The impression and plan of care has been dictated as directed. Dr. Chang I performed a history and examination of this patient, discussed the same with the dictator. I agree with the dictator's note ,documented as a scribe. Any additional findings or plans will be noted.
[2023-06-06 11:33] LABS: Glucose,Whole Blood 129 mg/dL (70-110)
[2023-06-06] MEDS ORDERED: IPRATROPIUM-ALBUTEROL 3 ML NEB INHALATION PRN (11:39)
[2023-06-06] MEDS ORDERED: LORazepam 1 MG TAB PO PRN (13:44)
[2023-06-06] MEDS: hydrALAZINE HCL 25 MG TAB PO SCH (14:06)
--- NOTE | 2023-06-06 14:15 | P.PN ---
Subjective Progress Note Date: 06/06/23 Angel Roy, is a 68-year-old male who was admitted to [facility] by Dr. Chang and underwent left carotid endarterectomy on 06/05/2023 His past medical history significant for history of hypertension, history of hyperlipidemia, history of COPD, history of basal cell carcinoma, history of diabetes mellitus type 2, history of gastroesophageal reflux disease, history of vitamin D deficiency. On review of systems patient was evaluated on the medical floor postoperatively he is alert and oriented 3 in no apparent distress he denies any complaints at this time there is no fever or chills no headache or dizziness no chest pain no shortness of breath no cough no nausea or vomiting no abdominal pain no diarrhea no blood in the stools no burning with urination no frequency or urgency and no hematuria. His no weakness or numbness in any of the extremities there is no change in vision speech or gait. On 06/06/2023 patient was seen and examined on the medical floor he is alert and oriented 3 in no apparent distress there is no fever or chills no headache or dizziness no chest pain no shortness of breath no cough no nausea or vomiting no abdominal pain no diarrhea and no urinary symptoms. Patient is still having copious bloody discharge from his left neck drainage tube. Blood pressure is significantly elevated and today I added hydralazine 25 mg by mouth 3 times daily, will continue to follow for 24 more hours as inpatient Objective - Vital Signs Vital signs: Vital Signs Temp 97.4 F L 06/06/23 08:15 Pulse 70 06/06/23 08:36 Resp 20 06/06/23 08:40 BP 180/78 06/06/23 08:15 Pulse Ox 94 L 06/06/23 08:15 FiO2 Intake & Output 06/05/23 06/06/23 06/06/23 18:59 06:59 18:59 Intake Total 1950 720 Output Total 1080 75 10 Balance 870 -75 710 Weight 95.5 kg Intake: IV 1950 Oral 720 Output: Drainage 30 75 10 Left Neck 30 75 10 Urine 1000 Uretheral (Chang) 250 Estimated Blood Loss 50 Other: Voiding Method Indwelling Catheter Toilet Toilet Indwelling Catheter # Voids 1 - Exam In general patient is alert and oriented x 3 in no distress HEENT head normocephalic and atraumatic Neck is supple no JVD no goiter no lymphadenopathy no carotid bruit, there is a drainage tube from the left neck. Chest examination is clear to auscultation no crackles no wheezing Cardiac exam reveals regular heart sounds S1 and S2 no gallops no murmurs Abdomen is soft nontender no organomegaly with normal bowel sounds Extremity exam reveals no edema no cyanosis or clubbing Neurological examination reveals no gross focal deficits - Labs CBC & Chem 7: 06/06/23 08:57 06/06/23 08:57 Labs: Abnormal Lab Results - Last 24 Hours (Table) 06/05/23 06/05/23 06/05/23 Range/Units 11:25 16:47 20:09 WBC (3.8-10.6) k/uL Neutrophils # (1.3-7.7) k/uL Sodium (137-145) mmol/L Chloride (98-107) mmol/L Glucose (74-99) mg/dL POC Glucose (mg/dL) 152 H 259 H 177 H (70-110) mg/dL 06/06/23 06/06/23 06/06/23 Range/Units 06:05 08:57 08:57 WBC 13.3 H (3.8-10.6) k/uL Neutrophils # 10.5 H (1.3-7.7) k/uL Sodium 131 L (137-145) mmol/L Chloride 95 L (98-107) mmol/L Glucose 131 H (74-99) mg/dL POC Glucose (mg/dL) 138 H (70-110) mg/dL Assessment and Plan Plan: Critical stenosis left carotid artery status post left carotid endarterectomy on 06/05/2023 Underlying history of hypertension Underlying history of hyperlipidemia Underlying history of COPD Underlying history of diabetes mellitus type 2 Underlying history of basal cell carcinoma with surgical removal and skin graft on left side of the face Underlying history of coronary artery disease with previous history of cardiac catheterization Prolonged history of tobacco abuse At this time patient is admitted to medical floor Home medications reviewed and reordered Will follow during this hospitalization for medical management
[2023-06-06] MEDS: IPRATROPIUM-ALBUTEROL 3 ML NEB INHALATION SCH (15:25)
[2023-06-06 16:33] LABS: Glucose,Whole Blood 195 mg/dL (70-110)
[2023-06-06 20:06] LABS: Glucose,Whole Blood 175 mg/dL (70-110)
[2023-06-06] MEDS: ACETAMINOPHEN TAB 325 MG TAB PO PRN (20:47)
[2023-06-07] MEDS: FUROSEMIDE 10 MG/ML 2 ML VIAL IV ONE (04:01)
[2023-06-07 06:15] LABS: Glucose,Whole Blood 136 mg/dL (70-110)
[2023-06-07 08:08] LABS: Basophils # (A) 0.1 k/uL (0-0.2); Basophils % (A) 1 %; Eosinophils # (A) 0.1 k/uL (0-0.7); Eosinophils % (A) 1 %; HCT 46.6 % (39.0-53.0); HGB 15.8 gm/dL (13.0-17.5); Lymphocytes # (A) 1.9 k/uL (1.0-4.8); Lymphocytes % (A) 16 %; MCH 32.7 pg (25.0-35.0); MCHC 33.9 g/dL (31.0-37.0); MCV 96.3 fL (80.0-100.0); Monocytes # (A) 0.9 k/uL (0-1.0); Monocytes % (A) 7 %; Neutrophils # (A) 9.1 k/uL (1.3-7.7); Neutrophils % (A) 74 %; Platelet Count 193 k/uL (150-450); RBC 4.84 m/uL (4.30-5.90); WBC 12.2 k/uL (3.8-10.6)
[2023-06-07 08:23] LABS: ALT 17 U/L (4-49); AST 25 U/L (17-59); African American GFR (CKD) >90 (>60 ml/min/1.73 sqM); Albumin 4.4 g/dL (3.5-5.0); Alkaline Phosphatase 88 U/L (38-126); Anion Gap 7 mmol/L; Blood Urea Nitrogen 16 mg/dL (9-20); Calcium 9.6 mg/dL (8.4-10.2); Carbon Dioxide 31 mmol/L (22-30); Chloride 92 mmol/L (98-107); Glucose 149 mg/dL (74-99); Non-African American GFR(CKD) >90 (>60 ml/min/1.73 sqM); Potassium 4.4 mmol/L (3.5-5.1); Sodium 130 mmol/L (137-145); Total Bilirubin 0.8 mg/dL (0.2-1.3); Total Protein 7.1 g/dL (6.3-8.2)
[2023-06-07 09:23] VITALS: TEMP 97.5
[2023-06-07] MEDS: hydrALAZINE HCL 50 MG TAB PO SCH (11:14)
[2023-06-07 11:25] VITALS: BP 147/75
[2023-06-07 11:35] LABS: Glucose,Whole Blood 145 mg/dL (70-110)
--- NOTE | 2023-06-07 12:05 | P.PN ---
Subjective Progress Note Date: 06/07/23 Angel Roy, is a 68-year-old male who was admitted to [facility] by Dr. Chang and underwent left carotid endarterectomy on 06/05/2023 His past medical history significant for history of hypertension, history of hyperlipidemia, history of COPD, history of basal cell carcinoma, history of diabetes mellitus type 2, history of gastroesophageal reflux disease, history of vitamin D deficiency. On review of systems patient was evaluated on the medical floor postoperatively he is alert and oriented 3 in no apparent distress he denies any complaints at this time there is no fever or chills no headache or dizziness no chest pain no shortness of breath no cough no nausea or vomiting no abdominal pain no diarrhea no blood in the stools no burning with urination no frequency or urgency and no hematuria. His no weakness or numbness in any of the extremities there is no change in vision speech or gait. On 06/06/2023 patient was seen and examined on the medical floor he is alert and oriented 3 in no apparent distress there is no fever or chills no headache or dizziness no chest pain no shortness of breath no cough no nausea or vomiting no abdominal pain no diarrhea and no urinary symptoms. Patient is still having copious bloody discharge from his left neck drainage tube. Blood pressure is significantly elevated and today I added hydralazine 25 mg by mouth 3 times daily, will continue to follow for 24 more hours as inpatient. On 06/07/2023 patient was seen and examined on the medical floor he is alert and oriented in no apparent distress he denies any complaints at this time his blood pressure continue to be elevated throughout the night he was started on hydralazine 25 mg 3 times daily yesterday he was given an extra dose of Lasix 20 mg IV at night dose of hydralazine was increased this morning to 50 mg 3 times a day and his blood pressure is much better controlled. Plan for vascular surgery is to discharge patient to home today. Patient is cleared medically for discharge, he was counseled to continue taking all his blood pressure medications, in addition he was counseled to take hydralazine 50 mg 3 times daily. A prescription for hydralazine was sent to [facility] through [facility]. Objective - Vital Signs Vital signs: Vital Signs Temp 97.5 F L 06/07/23 08:56 Pulse 60 06/07/23 09:45 Resp 18 06/07/23 09:45 BP 182/83 06/07/23 08:56 Pulse Ox 94 L 06/07/23 09:35 FiO2 Intake & Output 06/06/23 06/07/23 06/07/23 18:59 06:59 18:59 Intake Total 1316 240 Output Total 20 475 Balance 1296 -475 240 Intake: Oral 1316 240 Output: Drainage 20 15 Left Neck 20 15 Urine 460 Other: Voiding Method Toilet Toilet Toilet # Voids 1 2 - Exam In general patient is alert and oriented x 3 in no distress HEENT head normocephalic and atraumatic Neck is supple no JVD no goiter no lymphadenopathy no carotid bruit, there is a drainage tube from the left neck. Chest examination is clear to auscultation no crackles no wheezing Cardiac exam reveals regular heart sounds S1 and S2 no gallops no murmurs Abdomen is soft nontender no organomegaly with normal bowel sounds Extremity exam reveals no edema no cyanosis or clubbing Neurological examination reveals no gross focal deficits - Labs CBC & Chem 7: 06/07/23 07:48 06/07/23 07:48 Labs: Abnormal Lab Results - Last 24 Hours (Table) 06/06/23 06/06/23 06/06/23 Range/Units 11:31 16:32 20:05 WBC (3.8-10.6) k/uL Neutrophils # (1.3-7.7) k/uL Sodium (137-145) mmol/L Chloride (98-107) mmol/L Carbon Dioxide (22-30) mmol/L Glucose (74-99) mg/dL POC Glucose (mg/dL) 129 H 195 H 175 H (70-110) mg/dL 06/07/23 06/07/23 06/07/23 Range/Units 06:14 07:48 07:48 WBC 12.2 H (3.8-10.6) k/uL Neutrophils # 9.1 H (1.3-7.7) k/uL Sodium 130 L (137-145) mmol/L Chloride 92 L (98-107) mmol/L Carbon Dioxide 31 H (22-30) mmol/L Glucose 149 H (74-99) mg/dL POC Glucose (mg/dL) 136 H (70-110) mg/dL Assessment and Plan Plan: Critical stenosis left carotid artery status post left carotid endarterectomy on 06/05/2023 Underlying history of hypertension Underlying history of hyperlipidemia Underlying history of COPD Underlying history of diabetes mellitus type 2 Underlying history of basal cell carcinoma with surgical removal and skin graft on left side of the face Underlying history of coronary artery disease with previous history of cardiac catheterization Prolonged history of tobacco abuse At this time patient is admitted to medical floor Home medications reviewed and reordered Will follow during this hospitalization for medical management
[2023-06-07 13:26] VITALS: RESP 18
[2023-06-07 13:56] VITALS: PULSE 64
--- NOTE | 2023-06-07 14:12 | P.PN ---
Subjective Progress Note Date: 06/07/23 Principal diagnosis: Carotid stenosis, status post left carotid endarterectomy. Patient is postop day #2 status post left carotid endarterectomy. He voices no complaints. He indicates he feels well and is anxious for dismissal. Objective - Vital Signs Vital signs: Vital Signs Temp 97.5 F L 06/07/23 08:56 Pulse 64 06/07/23 13:33 Resp 18 06/07/23 13:33 BP 147/75 06/07/23 11:13 Pulse Ox 96 06/07/23 11:13 FiO2 Intake & Output 06/06/23 06/07/23 06/07/23 18:59 06:59 18:59 Intake Total 1316 240 Output Total 20 475 Balance 1296 -475 240 Intake: Oral 1316 240 Output: Drainage 20 15 Left Neck 20 15 Urine 460 Other: Voiding Method Toilet Toilet Toilet # Voids 1 2 - Exam Patient is awake, alert in no apparent distress. Neck: Left carotid endarterectomy incision is clean, dry and healing normally. The previously placed drain is removed. Neurologic: Cranial nerves II through XII are grossly intact. Equal motor strength is noted in the upper lower extremities bilaterally. - Labs CBC & Chem 7: 06/07/23 07:48 06/07/23 07:48 Labs: Abnormal Lab Results - Last 24 Hours (Table) 06/06/23 06/06/23 06/07/23 Range/Units 16:32 20:05 06:14 WBC (3.8-10.6) k/uL Neutrophils # (1.3-7.7) k/uL Sodium (137-145) mmol/L Chloride (98-107) mmol/L Carbon Dioxide (22-30) mmol/L Glucose (74-99) mg/dL POC Glucose (mg/dL) 195 H 175 H 136 H (70-110) mg/dL 06/07/23 06/07/23 06/07/23 Range/Units 07:48 07:48 11:34 WBC 12.2 H (3.8-10.6) k/uL Neutrophils # 9.1 H (1.3-7.7) k/uL Sodium 130 L (137-145) mmol/L Chloride 92 L (98-107) mmol/L Carbon Dioxide 31 H (22-30) mmol/L Glucose 149 H (74-99) mg/dL POC Glucose (mg/dL) 145 H (70-110) mg/dL Assessment and Plan Assessment: Status post left carotid endarterectomy, satisfactory progress. Plan: Patient is surgically stable for discharge. He will be dismissed on both aspirin and Plavix therapy. He understands he is allowed to shower over his wound and not to drive until being seen by Dr. Chang in the office. All questions were answered to patient's satisfaction. Time with Patient: Less than 30
--- NOTE | 2023-06-10 16:20 | CDI ---
Documentation Clarification Form Date: 06/10/2023 04:04:43 PM From: Mary Galicia Phone: Admit Date: 06/05/2023 05:41:00 AM Patient Name: Angel Roy Visit Number: [id number] Discharge Date: 06/07/2023 01:59:00 PM ATTENTION: The Clinical Documentation Specialists (CDI) and [facility] Coding Staff appreciate your assistance in clarifying documentation. Please respond to the clarification below the line at the bottom and electronically sign. The CDI & [facility] Coding staff will review the response and follow-up if needed. Please note: Queries are made part of the Legal Health Record. If you have any questions, please contact the author of this message via ITS. Dr. Shauna Benson Your patient has glucose of 259 per Progress Note 06/05. Based on this information and the findings below, is there an additional diagnosis that is clinically appropriate for this patient? 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 [ x ] DMII with hyperglycemia [ ] No additional diagnosis/Not clinically significant [ ] Unable to determine [ ] Other, please specify (Template Last Reviewed: May 2022) MTDD
[2023-06-11] MEDS ORDERED: NON FORMULARY DRUG (Dulaglutide [Trulicity] 1.5 MG/0.5 ML Each) SQ SCH (09:00)
== END 2023-06-07 13:59 | disposition home or self-care (01) | DRG 39 ==
LOC: 2ORMAIN 05:41 → 3SCARD 11:14
PROVIDERS: ADMIT Surgery; ATTEND Surgery
PROC: 03UL0KZ Supplement Left Internal Carotid Artery with Nonautologous Tissue Substitute, Open Approach (ICD-10-PCS; 2023-06-05)
PROC: 03CL0ZZ Extirpation of Matter from Left Internal Carotid Artery, Open Approach (ICD-10-PCS; principal; 2023-06-05 07:30)
DX: I65.22 Occlusion and stenosis of left carotid artery (principal); J44.9 Chronic obstructive pulmonary disease, unspecified; E11.65 Type 2 diabetes mellitus with hyperglycemia; I10 Essential (primary) hypertension; E78.5 Hyperlipidemia, unspecified; I25.10 Atherosclerotic heart disease of native coronary artery without angina pectoris; F17.210 Nicotine dependence, cigarettes, uncomplicated; K21.9 Gastro-esophageal reflux disease without esophagitis; Z99.81 Dependence on supplemental oxygen; Z98.61 Coronary angioplasty status; Z79.85 Long-term (current) use of injectable non-insulin antidiabetic drugs; Z79.82 Long term (current) use of aspirin; Z79.899 Other long term (current) drug therapy; Z79.51 Long term (current) use of inhaled steroids; Z88.8 Allergy status to other drugs, medicaments and biological substances; Z85.828 Personal history of other malignant neoplasm of skin
CPT/HCPCS: 80053; 85025; 88304; 88305; 88311; 94640; 94760

== ENCOUNTER → 2023-08-25 | Outpatient (CLI) | payer MEDICARE, OTHER ==
--- NOTE | 2023-08-27 05:55 | CTL ---
EXAMINATION TYPE: CT Low Dose Lung DATE OF EXAM ORDERED: 08/25/2023 HISTORY: Long-term tobacco use. Lung cancer screening CT DLP: 131.[address] CTDI: 3.3 mGy Automated exposure control for dose reduction was used. SCREENING VISIT: Baseline COMPARISON: None TECHNIQUE: Low dose computed tomography scan was performed through the chest at 1 mm thick sections a nd reconstructed images in multiple planes at 1 mm and [address] DIAGNOSTIC QUALITY: Satisfactory FINDINGS: Nodules: RUL: None. RML: None. RLL: None. CAMILA: None. LLL: None. LUNGS: COPD: Severity: Mild to moderate Fibrosis: Severity: None Lymph nodes: No greater than 1 cm Other findings: None RIGHT PLEURAL SPACE: Effusion: None Calcification: None Thickening: None Pneumothorax: None LEFT PLEURAL SPACE: Effusion: None Calcification: None Thickening: None Pneumothorax: None HEART: Heart Size: Normal Coronary Calcification: Moderate Pericardial Effusion: None OTHER FINDINGS: Upper abdomen: None Bony thorax: Slight scoliotic curvature with moderate multilevel spurring Supraclavicular region: None Other: None IMPRESSION: No suspicious greater than 6 mm noncalcified pulmonary nodules CT LUNG RAD AND CT CHEST RECOMMENDATION: Lung-Rad 1 Negative: Continue annual screening with LDCT in 12 months. S Modifier (other clinically significant findings): None
== END | disposition home or self-care (01) ==
LOC: RADCTMAIN 09:42
PROVIDERS: ATTEND Internal Medicine Critical Care Medicine
DX: Z12.2 Encounter for screening for malignant neoplasm of respiratory organs (principal); F17.210 Nicotine dependence, cigarettes, uncomplicated
CPT/HCPCS: 71271

== ENCOUNTER 2024-07-04 23:41 | Inpatient (IN) | payer MEDICARE, OTHER ==
[2024-07-04] MEDS: MAGNESIUM SULFATE-D5W PMX 1 GM in DEXTROSE/WATER 1 100ML.BAG IVPB SCH (23:56)
[2024-07-04] MEDS: IPRATROPIUM 0.5 MG/2.5 ML NEBU INHALATION STA (23:56)
[2024-07-04] MEDS: SODIUM CHLORIDE 0.9% 500 ML 500 ML IV ONE (23:57)
[2024-07-04] MEDS: methylPREDNISolone SOD SUCCI 125 MG/2 ML VIAL IV STA (23:58)
[2024-07-04] MEDS: ALBUTEROL NEBULIZED 15 MG, IPRATROPIUM NEBULIZED 0.5 MG INHALATION ONE (23:59)
--- NOTE | 2024-07-05 | ED ---
General Adult HPI - General Chief complaint: Shortness of Breath Stated complaint: Difficulty breathing Time Seen by Provider: 07/04/24 23:48 Source: EMS Mode of arrival: EMS Limitations: no limitations - History of Present Illness Initial comments: History is limited by acuity of condition. Patient is a 69-year-old male history CHF, COPD presenting today for shortness of breath. On home 2 L oxygen typically. Over the last week has had worsening shortness of breath today was the worst it has ever been. He has been using inhaler multiple times a day without improvement of symptoms. Tonight called due to patient's difficulty in breathing. On EMS arrival patient was tripoding, cyanotic with a pulse ox of 70% on room air, dyspneic. He was placed on CPAP and given DuoNeb en route to the hospital. On arrival paramedics do note patient does look more cyanotic than when they had initially picked him up. Patient denied chest pain to paramedics. - Related Data Home Medications Medication Instructions Recorded Confirmed Albuterol Sulfate [Proair 2 puff INHALATION Q4-6H PRN 10/30/22 06/05/23 Respiclick] Dulaglutide [Trulicity] 1.5 mg SQ WE 10/30/22 06/05/23 Furosemide [Lasix] 20 mg PO DAILY 10/30/22 06/05/23 Metoprolol Tartrate [Lopressor] 50 mg PO BID 10/30/22 06/05/23 Primidone 50 mg PO HS 10/30/22 06/05/23 Rosuvastatin [Crestor] 20 mg PO DAILY 10/30/22 06/05/23 amLODIPine [Norvasc] 10 mg PO QAM 10/30/22 06/05/23 Albuterol Nebulized [Ventolin 2.5 mg INHALATION TID PRN 11/29/22 06/05/23 Nebulized] Aspirin [Adult Low Dose Aspirin EC] 81 mg PO HS 11/29/22 06/05/23 HYDROcodone/APAP 5-325MG [[place] 1 tab PO TID PRN 11/29/22 06/05/23 5-325] Losartan Potassium 100 mg PO QAM 11/29/22 06/05/23 Umeclidinium Central [Incruse 1 puff INHALATION QAM 06/03/23 06/05/23 Ellipta] Previous Rx's Medication Instructions Recorded Clopidogrel [Plavix] 75 mg PO DAILY #30 tab 06/06/23 Allergies Allergy/AdvReac Type Severity Reaction Status Date / Time iodine Allergy Nausea & Verified 06/03/23 14:09 Vomiting Review of Systems ROS Statement: Those systems with pertinent positive or pertinent negative responses have been documented in the HPI. ROS Other: All systems not noted in ROS Statement are negative. Past Medical History Past Medical History: Cancer, COPD, Diabetes Mellitus, Hyperlipidemia, Hypertension Additional Past Medical History / Comment(s): blocked arteries, basal cell skin ca ,uses home O2 @ 2L NC as needed at nighttime. History of Any Multi-Drug Resistant Organisms: None Reported Past Surgical History: Heart Catheterization Additional Past Surgical History / Comment(s): basal cell by eye with skin graft, colonoscopy Past Anesthesia/Blood Transfusion Reactions: No Reported Reaction Additional Past Anesthesia/Blood Transfusion Reaction / Comment(s): no blood tx hx Past Psychological History: Anxiety Smoking Status: Current every day smoker - Past Family History Brother(s) Family Medical History: Cancer Additional Family Medical History / Comment(s): 2 brother prostate, 1 copd pulm htn all General Exam - General Exam Comments Initial Comments: PE: CONSTITUTIONAL: In acute distress, cyanosis of the lips and cheeks, lethargic, opens eyes to loud voice, dyspneic, on CPAP switched to BiPAP on arrival SKIN: Cool, clammy, dry, no jaundice, hives or petechiae EYES: Pupils are equally round, extraocular movements intact without nystagmus, clear conjunctiva, non-icteric sclera HENT: Normocephalic, atraumatic, moist mucus membranes, oropharynx clear without exudates NECK: , Full range of motion, normal appearance PULMONARY: Poor air movement worse on the left than the right, scant wheeze in the right upper lung field, decreased excursion, tachypnea, suprasternal retractions, no stridor r CARDIOVASCULAR: Regular rate, rhythm, normal S1 and S2. No appreciated murmurs, rubs or gallops. Strong radial pulses with intact distal perfusion. No lower extremity edema GASTROINTESTINAL: Soft, active bowel sounds throughout, non-tender, non- distended, no palpable masses, no rebound or guarding. No hepatosplenomegaly MUSCULOSKELETAL: Extremities have no gross deformity, no edema, redness, or s welling. No calf swelling NEUROLOGIC:_a/o x 3, GCS 11, resting with eyes closed opens to loud voice, localized pain, mumbled response however patient does have a BiPAP mask in place limiting his ability to answer questions, Moves all extremities x 4 without motor or sensory deficit PSYCHIATRIC: Calm Cooperative, otherwise difficult to evaluate due to respiratory distress] Limitations: no limitations Course Vital Signs 07/04/24 07/04/24 07/05/24 23:43 23:50 00:03 Temperature 95.0 F L Pulse Rate 68 85 Respiratory 28 H Rate Blood Pressure 160/79 O2 Sat by Pulse 96 Oximetry Fraction of 100 100 Inspired Oxygen (FIO2) 07/05/24 07/05/24 07/05/24 00:16 00:48 01:04 Temperature Pulse Rate 58 L 59 L 74 Respiratory 26 H 28 H Rate Blood Pressure 122/59 99/51 O2 Sat by Pulse 96 96 Oximetry Fraction of Inspired Oxygen (FIO2) 07/05/24 07/05/24 07/05/24 01:06 01:30 02:00 Temperature 93.6 F L Pulse Rate 57 L 65 50 L Respiratory 24 24 Rate Blood Pressure 100/49 99/62 O2 Sat by Pulse 96 98 98 Oximetry Fraction of Inspired Oxygen (FIO2) 07/05/24 07/05/24 07/05/24 02:32 03:00 03:05 Temperature 94 F L Pulse Rate 52 L 49 L Respiratory 22 24 Rate Blood Pressure 97/50 103/52 O2 Sat by Pulse 98 97 Oximetry Fraction of Inspired Oxygen (FIO2) 07/05/24 07/05/24 07/05/24 03:07 03:19 04:12 Temperature 95.0 F L Pulse Rate 54 L 60 Respiratory Rate Blood Pressure O2 Sat by Pulse Oximetry Fraction of 100 Inspired Oxygen (FIO2) 07/05/24 07/05/24 07/05/24 04:30 04:43 05:32 Temperature 95.3 F L 95.5 F L 96.4 F L Pulse Rate 52 L 62 Respiratory 22 18 Rate Blood Pressure 107/56 104/52 O2 Sat by Pulse 98 97 Oximetry Fraction of Inspired Oxygen (FIO2) 07/05/24 07/05/24 07/05/24 05:42 06:00 06:42 Temperature 96.6 F L 97.3 F L Pulse Rate 58 L 58 L Respiratory 20 20 Rate Blood Pressure 101/44 108/47 O2 Sat by Pulse 97 99 Oximetry Fraction of Inspired Oxygen (FIO2) - Reevaluation(s) Reevaluation #1: On reassessment patient's cheeks are not pink, no longer cyanotic, is more alert however was trying to remove BiPAP mask, was redirectable however will be given 0.5 mg Ativan to assist with compliance 07/05/24 00:19 EKG Findings - EKG Comments: EKG Findings:: Sinus rhythm, rate 64 beats minute NH interval 186 ms QT/QTc 409/419 ms, normal axis, there is significant artifact limiting interpretation however there is no clear ST elevations or depressions, T wave inversion lead aVR. Repeat EKG was obtained due to troponin elevation and significant artifact on initial EKG, no evolving ischemic changes and repeat EKG compared to prior, sinus bradycardia rate 49 bpm NH interval 160 ms QT/QTc 46/456 ms, normal axis, no significant ST elevations or depressions, no arrhythmia Medical Decision Making - Medical Decision Making Was pt. sent in by a medical professional or institution (, PA, SPEEDBOAT OPERATOR, urgent care, hospital, or [facility]...) When possible be specific @ -[No] Did you speak to anyone other than the patient for history (EMS, parent, family, police, friend...)? What history was obtained from this source @Spoke with EMS personnel, provided HPI as above, patient was 70% on room air on their arrival, patient was provided with DuoNebs and placed on CPAP, they report the patient appears more ill now than when they had initially picked him up patient typically wears 2 L oxygen nasal cannula Did you review nursing and triage notes (agree or disagree)? Why? @ -[I reviewed nursing and triage notes] Were old charts reviewed (outside hosp., previous admission, EMS record, old EKG, old radiological studies, urgent care reports/EKG's, chcf records)? Report findings @ -[Medical records reviewed] Differential Diagnosis (chest pain, altered mental status, abdominal pain women, abdominal pain men, vaginal bleeding, weakness, fever, dyspnea, syncope, headache, dizziness, GI bleed, back pain, seizure, CVA, palpatations, mental health, musculoskeletal)? @ -Differential Dyspnea: Coronary syndrome, arrhythmia, tamponade, asthma, COPD, pulmonary embolism, pneumonia, pneumothorax, pulmonary effusion, anaphylaxis, diabetic ketoacidosis, flailed chest, pulmonary contusion, diaphragmatic rupture, anemia, neuromuscular, this is not meant to be an all-inclusive list. EKG interpreted by me (3pts min.). @ -[As above] X-rays interpreted by me (1pt min.). @I personally viewed chest x-ray see no pneumothorax, appears to have right lower lobe consolidation CT interpreted by me (1pt min.). @ -[None done] U/S interpreted by me (1pt. min.). @ -[None done] What testing was considered but not performed or refused? (CT, X-rays, U/S, labs)? Why? @ -[None] What meds were considered but not given or refused? Why? @ -[None] Did you discuss the management of the patient with other professionals (professionals i.e. , PA, SPEEDBOAT OPERATOR, lab, RT, psych nurse, social work associate, research soil scientist, teacher, security control room officer, binder caser)? Give summary @ -[No] Was smoking cessation discussed for >3mins.? @ -[No] Was critical care preformed (if so, how long)? @ -[No] Were there social determinants of health that impacted care today? How? (Homelessness, low income, unemployed, alcoholism, drug addiction, transportation, low edu. Level, literacy, decrease access to med. care, group home, rehab)? @ -[No] Was there de-escalation of care discussed even if they declined (Discuss DNR or withdrawal of care, Hospice)? @ -[No] What co-morbidities impacted this encounter? (DM, HTN, Smoking, COPD, CAD, Cancer, CVA, ARF, Chemo, Hep., AIDS, mental health diagnosis, sleep apnea, m orbid obesity)? @ -[None] Was patient admitted / discharged? Hospital course, mention meds given and route, prescriptions, significant lab abnormalities, going to OR and other pertinent info. @ -[hospital course] this is a 69-year-old male past medical history COPD, CHF presenting today for difficulty in breathing. Assessed on arrival. In acute distress, middle breath sounds in the left lower lung field and right with scant wheeze in the right APC, he was immediately transitioned to BiPAP, will be given continuous albuterol, steroids, Rocephin azithromycin, small liter IV fluids, magnesium, competence of labs to be drawn. I am considering intubation however will give patient time on BiPAP as he is not actively vomiting and continues to respond to voice. Undiagnosed new problem with uncertain prognosis? @ -[No] Drug Therapy requiring intensive monitoring for toxicity (Heparin, Nitro, Insulin, Cardizem)? @ -[No] Were any procedures done? @ -[No] Diagnosis/symptom? @ -[default] Acute, or Chronic, or Acute on Chronic? @ -[default] Uncomplicated (without systemic symptoms) or Complicated (systemic symptoms)? @ -[default] Side effects of treatment? @ -[No] Exacerbation, Progression, or Severe Exacerbation? @ -[No] Poses a threat to life or bodily function? How? (Chest pain, [place], [place], pneumonia, PE, COPD, DKA, ARF, appy, cholecystitis, CVA, Diverticulitis, Homicidal, Suicidal, threat to staff... and all critical care pts) @ -[No] - Lab Data Result diagrams: 07/04/24 23:52 07/04/24 23:52 Lab Results 07/04/24 07/04/24 07/04/24 Range/Units 23:52 23:52 23:52 WBC 16.4 H (3.8-10.6) k/uL RBC 5.22 (4.30-5.90) m/uL Hgb 16.4 (13.0-17.5) gm/dL Hct 50.6 (39.0-53.0) % MCV 96.9 (80.0-100.0) fL MCH 31.5 (25.0-35.0) pg MCHC 32.5 (31.0-37.0) g/dL RDW 14.6 (11.5-15.5) % Plt Count 262 (150-450) k/uL MPV 8.4 Neutrophils % 77 % Lymphocytes % 11 % Monocytes % 7 % Eosinophils % 2 % Basophils % 1 % Neutrophils # 12.6 H (1.3-7.7) k/uL Lymphocytes # 1.9 (1.0-4.8) k/uL Monocytes # 1.1 H (0-1.0) k/uL Eosinophils # 0.3 (0-0.7) k/uL Basophils # 0.1 (0-0.2) k/uL PT 10.3 (10.0-12.5) sec INR 0.9 (<1.2) APTT 22.5 (22.0-30.0) sec Sample Site ABG pH (7.35-7.45) ABG pCO2 (35-45) mmHg ABG pO2 (83-108) mmHg ABG HCO3 (21-25) mmol/L ABG Total CO2 (19-24) mmol/L ABG O2 Saturation (94-97) % ABG Base Excess mmol/L Oscar Test Hemoglobin (13.0-17.5) gm/dL FiO2 % Sodium 127 L (137-145) mmol/L Potassium 4.6 (3.5-5.1) mmol/L Chloride 87 L (98-107) mmol/L Carbon Dioxide 32 H (22-30) mmol/L Anion Gap 8 mmol/L BUN 14 (9-20) mg/dL Creatinine 0.67 (0.66-1.25) mg/dL Est GFR (CKD-EPI)AfAm >90 (>60 ml/min/1.73 sqM) Est GFR (CKD-EPI)NonAf >90 (>60 ml/min/1.73 sqM) Glucose 177 H (74-99) mg/dL Plasma Lactic Acid Min (0.7-2.0) mmol/L Calcium 9.0 (8.4-10.2) mg/dL Total Bilirubin 0.7 (0.2-1.3) mg/dL AST 35 (17-59) U/L ALT 26 (4-49) U/L Alkaline Phosphatase 90 (38-126) U/L Troponin I (0.000-0.034) ng/mL NT-Pro-B Natriuret Pep 373 pg/mL Total Protein 7.4 (6.3-8.2) g/dL Albumin 4.6 (3.5-5.0) g/dL Influenza Type A (PCR) (Not Detectd) Influenza Type B (PCR) (Not Detectd) RSV (PCR) (Not Detectd) SARS-CoV-2 (PCR) (Not Detectd) 07/04/24 07/04/24 07/04/24 Range/Units 23:52 23:52 23:52 WBC (3.8-10.6) k/uL RBC (4.30-5.90) m/uL Hgb (13.0-17.5) gm/dL Hct (39.0-53.0) % MCV (80.0-100.0) fL MCH (25.0-35.0) pg MCHC (31.0-37.0) g/dL RDW (11.5-15.5) % Plt Count (150-450) k/uL MPV Neutrophils % % Lymphocytes % % Monocytes % % Eosinophils % % Basophils % % Neutrophils # (1.3-7.7) k/uL Lymphocytes # (1.0-4.8) k/uL Monocytes # (0-1.0) k/uL Eosinophils # (0-0.7) k/uL Basophils # (0-0.2) k/uL PT (10.0-12.5) sec INR (<1.2) APTT (22.0-30.0) sec Sample Site ABG pH (7.35-7.45) ABG pCO2 (35-45) mmHg ABG pO2 (83-108) mmHg ABG HCO3 (21-25) mmol/L ABG Total CO2 (19-24) mmol/L ABG O2 Saturation (94-97) % ABG Base Excess mmol/L Oscar Test Hemoglobin (13.0-17.5) gm/dL FiO2 % Sodium (137-145) mmol/L Potassium (3.5-5.1) mmol/L Chloride (98-107) mmol/L Carbon Dioxide (22-30) mmol/L Anion Gap mmol/L BUN (9-20) mg/dL Creatinine (0.66-1.25) mg/dL Est GFR (CKD-EPI)AfAm (>60 ml/min/1.73 sqM) Est GFR (CKD-EPI)NonAf (>60 ml/min/1.73 sqM) Glucose (74-99) mg/dL Plasma Lactic Acid Min 0.7 (0.7-2.0) mmol/L Calcium (8.4-10.2) mg/dL Total Bilirubin (0.2-1.3) mg/dL AST (17-59) U/L ALT (4-49) U/L Alkaline Phosphatase (38-126) U/L Troponin I <0.012 (0.000-0.034) ng/mL NT-Pro-B Natriuret Pep pg/mL Total Protein (6.3-8.2) g/dL Albumin (3.5-5.0) g/dL Influenza Type A (PCR) Not Detected (Not Detectd) Influenza Type B (PCR) Not Detected (Not Detectd) RSV (PCR) Not Detected (Not Detectd) SARS-CoV-2 (PCR) Not Detected (Not Detectd) 07/05/24 Range/Units 00:04 WBC (3.8-10.6) k/uL RBC (4.30-5.90) m/uL Hgb (13.0-17.5) gm/dL Hct (39.0-53.0) % MCV (80.0-100.0) fL MCH (25.0-35.0) pg MCHC (31.0-37.0) g/dL RDW (11.5-15.5) % Plt Count (150-450) k/uL MPV Neutrophils % % Lymphocytes % % Monocytes % % Eosinophils % % Basophils % % Neutrophils # (1.3-7.7) k/uL Lymphocytes # (1.0-4.8) k/uL Monocytes # (0-1.0) k/uL Eosinophils # (0-0.7) k/uL Basophils # (0-0.2) k/uL PT (10.0-12.5) sec INR (<1.2) APTT (22.0-30.0) sec Sample Site Right Radial ABG pH 7.17 L* (7.35-7.45) ABG pCO2 83 H* (35-45) mmHg ABG pO2 291 H (83-108) mmHg ABG HCO3 31 H (21-25) mmol/L ABG Total CO2 33 H (19-24) mmol/L ABG O2 Saturation 99.6 H (94-97) % ABG Base Excess -0.8 mmol/L Oscar Test Yes Hemoglobin 15.6 (13.0-17.5) gm/dL FiO2 100 % Sodium (137-145) mmol/L Potassium (3.5-5.1) mmol/L Chloride (98-107) mmol/L Carbon Dioxide (22-30) mmol/L Anion Gap mmol/L BUN (9-20) mg/dL Creatinine (0.66-1.25) mg/dL Est GFR (CKD-EPI)AfAm (>60 ml/min/1.73 sqM) Est GFR (CKD-EPI)NonAf (>60 ml/min/1.73 sqM) Glucose (74-99) mg/dL Plasma Lactic Acid Min (0.7-2.0) mmol/L Calcium (8.4-10.2) mg/dL Total Bilirubin (0.2-1.3) mg/dL AST (17-59) U/L ALT (4-49) U/L Alkaline Phosphatase (38-126) U/L Troponin I (0.000-0.034) ng/mL NT-Pro-B Natriuret Pep pg/mL Total Protein (6.3-8.2) g/dL Albumin (3.5-5.0) g/dL Influenza Type A (PCR) (Not Detectd) Influenza Type B (PCR) (Not Detectd) RSV (PCR) (Not Detectd) SARS-CoV-2 (PCR) (Not Detectd) Disposition Clinical Impression: Acute hypercapnic respiratory failure, Acute exacerbation of chronic obstruct babatunde pulmonary disease Disposition: ADMITTED IP TO THIS HOSP Condition: Stable
[2024-07-05] MEDS: LORazepam 2 MG/ML INJ IV STA (00:10)
[2024-07-05 00:18] LABS: ABG Base Excess -0.8 mmol/L; ABG HCO3 31 mmol/L (21-25); ABG Oxygen Saturation 99.6 % (94-97); ABG PO2 291 mmHg (83-108); ABG TCO2 33 mmol/L (19-24); Allen Test Performed? Yes
[2024-07-05 00:23] LABS: ABG PCO2 83 mmHg (35-45); ABG PH 7.17 (7.35-7.45)
--- NOTE | 2024-07-05 00:24 | XR ---
EXAM: XR Chest, 1 View CLINICAL HISTORY: ITS.REASON XR Reason: shortness of breath TECHNIQUE: Frontal view of the chest. COMPARISON: Chest radiograph on 02/04/2019 FINDINGS: Hardware: None. Lungs/pleura: Mild lower lung opacities. No pleural effusion or pneumothorax. Heart/mediastinum: Normal. No cardiomegaly. Soft tissues: Unremarkable. Bones: No acute fracture. Upper abdomen: Normal. IMPRESSION: Mild lower lung opacities may represent atelectasis versus infectious/inflammatory process.
[2024-07-05] MEDS: AZITHROMYCIN 500 MG in SODIUM CHLORIDE 0.9% 250 ML IVPB STA ×2 (00:33→15:05)
[2024-07-05 01:04] LABS: INR 0.9 (<1.2); Partial Thromboplastin Time 22.5 sec (22.0-30.0); Prothrombin Time 10.3 sec (10.0-12.5)
[2024-07-05 01:07] LABS: Basophils # (A) 0.1 k/uL (0-0.2); Basophils % (A) 1 %; Eosinophils # (A) 0.3 k/uL (0-0.7); Eosinophils % (A) 2 %; HCT 50.6 % (39.0-53.0); HGB 16.4 gm/dL (13.0-17.5); Lymphocytes # (A) 1.9 k/uL (1.0-4.8); Lymphocytes % (A) 11 %; MCH 31.5 pg (25.0-35.0); MCHC 32.5 g/dL (31.0-37.0); MCV 96.9 fL (80.0-100.0); Mean Platelet Volume 8.4; Monocytes # (A) 1.1 k/uL (0-1.0); Monocytes % (A) 7 %; Neutrophils # (A) 12.6 k/uL (1.3-7.7); Neutrophils % (A) 77 %; Platelet Count 262 k/uL (150-450); RBC 5.22 m/uL (4.30-5.90); RDW 14.6 % (11.5-15.5); WBC 16.4 k/uL (3.8-10.6)
[2024-07-05 01:12] LABS: ALT 26 U/L (4-49); AST 35 U/L (17-59); African American GFR (CKD) >90 (>60 ml/min/1.73 sqM); Albumin 4.6 g/dL (3.5-5.0); Alkaline Phosphatase 90 U/L (38-126); Anion Gap 8 mmol/L; Blood Urea Nitrogen 14 mg/dL (9-20); Carbon Dioxide 32 mmol/L (22-30); Chloride 87 mmol/L (98-107); Glucose 177 mg/dL (74-99); Non-African American GFR(CKD) >90 (>60 ml/min/1.73 sqM); Potassium 4.6 mmol/L (3.5-5.1); Sodium 127 mmol/L (137-145); Total Bilirubin 0.7 mg/dL (0.2-1.3); Total Protein 7.4 g/dL (6.3-8.2)
[2024-07-05 01:21] LABS: NT-Pro-B-Type Natriuretic Pept 373 pg/mL
[2024-07-05 01:22] LABS: Influenza A Not Detected (Not Detectd); Influenza B Not Detected (Not Detectd); RSV Not Detected (Not Detectd)
[2024-07-05] MEDS ORDERED: IPRATROPIUM-ALBUTEROL 3 ML NEB INHALATION PRN (01:45)
[2024-07-05] MEDS ORDERED: ACETAMINOPHEN TAB 325 MG TAB PO PRN (01:45)
[2024-07-05] MEDS ORDERED: NALOXONE 0.4 MG/ML 1 ML VIAL IVP PRN (01:45)
[2024-07-05] MEDS: SODIUM CHLORIDE 0.9% 500 ML 500 ML IV ONE (02:26)
[2024-07-05] MEDS: SODIUM CHLORIDE 0.9% 1,000 ML IV SCH (02:26)
[2024-07-05] MEDS: IPRATROPIUM-ALBUTEROL 3 ML NEB INHALATION STA (03:06)
[2024-07-05] MEDS ORDERED: DEXTROSE 50% SYRINGE 50 ML IVP PRN ×2 (10:00)
[2024-07-05] MEDS: IPRATROPIUM-ALBUTEROL 3 ML NEB INHALATION SCH (10:08)
[2024-07-05] MEDS: ATORVASTATIN 40 MG TAB PO SCH (10:22)
[2024-07-05] MEDS: METOPROLOL TARTRATE 50 MG TAB PO SCH (10:23)
[2024-07-05] MEDS: ENOXAPARIN 40 MG/0.4 ML SYRINGE SQ SCH (10:23)
[2024-07-05] MEDS: DOXYCYCLINE 100 MG TABLET PO SCH (10:23)
[2024-07-05] MEDS: predniSONE 20 MG TAB PO SCH (10:24)
[2024-07-05] MEDS: NICOTINE 21MG/24HR PATCH TRANSDERM SCH (10:24)
[2024-07-05 12:56] LABS: Glucose,Whole Blood 138 mg/dL (70-110)
[2024-07-05] MEDS: INSULIN LISPRO (HumaLOG) 100 UNIT/ML 10 mL VL SQ SCH (13:01)
[2024-07-05] MEDS: methylPREDNISolone SOD SUCCI 125 MG/2 ML VIAL IV SCH (15:05)
[2024-07-05 15:27] LABS: Basophils % (A) 0 %; Eosinophils % (A) 0 %; HCT 41.2 % (39.0-53.0); Lymphocytes # (A) 0.4 k/uL (1.0-4.8); Lymphocytes % (A) 4 %; MCH 32.4 pg (25.0-35.0); MCHC 34.1 g/dL (31.0-37.0); Mean Platelet Volume 7.5; Monocytes # (A) 0.4 k/uL (0-1.0); Monocytes % (A) 5 %; Neutrophils # (A) 7.5 k/uL (1.3-7.7); Neutrophils % (A) 90 %; Platelet Count 150 k/uL (150-450); RBC 4.33 m/uL (4.30-5.90); RDW 14.1 % (11.5-15.5); WBC 8.4 k/uL (3.8-10.6)
[2024-07-05 15:46] LABS: ALT 21 U/L (4-49); AST 26 U/L (17-59); African American GFR (CKD) >90 (>60 ml/min/1.73 sqM); Albumin 3.7 g/dL (3.5-5.0); Alkaline Phosphatase 69 U/L (38-126); Anion Gap 9 mmol/L; Blood Urea Nitrogen 17 mg/dL (9-20); Calcium 8.7 mg/dL (8.4-10.2); Carbon Dioxide 23 mmol/L (22-30); Chloride 94 mmol/L (98-107); Glucose 179 mg/dL (74-99); Non-African American GFR(CKD) >90 (>60 ml/min/1.73 sqM); Potassium 4.4 mmol/L (3.5-5.1); Sodium 126 mmol/L (137-145); Total Bilirubin 0.7 mg/dL (0.2-1.3); Total Protein 5.9 g/dL (6.3-8.2)
--- NOTE | 2024-07-05 16:51 | P.CNPUL ---
History of Present Illness Consult date: 07/05/24 Reason for consult: dyspnea History of present illness: Patient is a 69-year-old male history CHF, COPD presenting today for shortness of breath. On home 2 L oxygen typically. The patient is also maintained on Trelegy Ellipta 1 puff a day on an outpatient basis. Over the last week has had worsening shortness of breath today was the worst it has ever been. He has been using inhaler multiple times a day without improvement of symptoms. Tonight called due to patient's difficulty in breathing. On EMS arrival patient was tripoding, cyanotic with a pulse ox of 70% on room air, dyspneic. Accordingly, the patient was placed on a BiPAP and the patient remains on BiPAP at a pressure of 12 over 5 cm of water with an FiO2 of 100%. This current pulse ox is 97%. I reviewed the chest x-ray from the current admission and the patient has COPD with chronic interstitial changes. No evidence of any airspace disease. No evidence of any pneumonia. The white cell count of 8.4 with a hemoglobin of 14 and a platelet count of 150. Sodium level was low at 126, chloride was at 94, BUN was 17 with a creatinine of 0.5. LFTs are normal. Troponins were 0.040.04 and 0.02 respectively. The patient is a chronic smoker. He is known to have diabetes mellitus type 2 maintained on Mounjaro on an outpatient basis. He also has bilateral carotid artery disease and the patient has undergone a left carotid endarterectomy that was successful.) she drinks alcohol and he also has hypertension. His FEV1 has been in the order of 46% of predicted based on the previous spirometry. His most recent low-dose CAT scan of the chest on 08/27/2023 showed no evidence of any lesions or malignancy. At the time of my evaluation, the patient seemed more comfortable. His FiO2 was dropped down to 40% and subsequently patient was transitioned to oxygen by nasal cannula. No altered mentation. No signs of any CO2 narcosis. The viral 4 Plex was negative. Review of Systems Constitutional: Reports daytime sleepiness, Reports fatigue, Reports lethargy, Reports malaise, Reports poor appetite Eyes: denies as per HPI, denies blurred vision, denies bulging eye, denies decreased vision, denies diplopia, denies discharge, denies dry eye, denies irritation, denies itching, denies pain, denies photophobia, denies loss of peripheral vision, denies loss of vision, denies tunnel vision/blind spots Ears: deny: decreased hearing, ear discharge, earache, tinnitus Ears, nose, mouth and throat: Reports as per HPI Breasts: absent: as per HPI, gynecomastia Cardiovascular: Reports decreased exercise tolerance Respiratory: Reports cough, Reports cough with sputum, Reports dyspnea, Reports home oxygen, Reports wheezing Gastrointestinal: Reports as per HPI Genitourinary: Reports as per HPI Musculoskeletal: Reports as per HPI Musculoskeletal: absent: ankle pain, ankle stiffness, ankle swelling, as per HPI, elbow pain, elbow stiffness, elbow swelling, foot pain, foot stiffness, foot swelling, hand pain, hand stiffness, hand swelling, hip pain, hip stiffness, hip swelling, knee pain, knee stiffness, knee swelling, shoulder pain, shoulder stiffness, shoulder swelling, wrist pain, wrist stiffness, wrist swelling Integumentary: Reports as per HPI Neurological: Reports as per HPI, Reports change in mentation Psychiatric: Reports as per HPI, Reports confusion Endocrine: Reports as per HPI, Reports fatigue Hematologic/Lymphatic: Reports as per HPI Allergic/Immunologic: Reports as per HPI Past Medical History Past Medical History: Cancer, COPD, Diabetes Mellitus, Hyperlipidemia, Hypertension Additional Past Medical History / Comment(s): blocked arteries, basal cell skin ca ,uses home O2 @ 2L NC as needed at nighttime. History of Any Multi-Drug Resistant Organisms: None Reported Past Surgical History: Heart Catheterization Additional Past Surgical History / Comment(s): basal cell by eye with skin graft, colonoscopy Past Anesthesia/Blood Transfusion Reactions: No Reported Reaction Additional Past Anesthesia/Blood Transfusion Reaction / Comment(s): no blood tx hx Past Psychological History: Anxiety Smoking Status: Current every day smoker - Past Family History Brother(s) Family Medical History: Cancer Additional Family Medical History / Comment(s): 2 brother prostate, 1 copd pulm htn all Medications and Allergies Home Medications Medication Instructions Recorded Confirmed Type Albuterol Nebulized [Ventolin 2.5 mg INHALATION RT-QID 07/05/24 07/05/24 History Nebulized] Albuterol Sulfate [Albuterol 1 - 2 puff INHALATION RT-QID PRN 07/05/24 07/05/24 History Sulfate Hfa] Aspirin EC [Ecotrin Low Dose] 81 mg PO DAILY 07/05/24 07/05/24 History Fluticasone/Umeclidin/Vilanter 1 puff INHALATION RT-DAILY 07/05/24 07/05/24 History [Trelegy Ellipta 100-62.5-25] Furosemide [Lasix] 20 mg PO DAILY 07/05/24 07/05/24 History HYDROcodone/APAP 7.5-325MG [[place] 1 tab PO TID 07/05/24 07/05/24 History 7.5-325] Losartan Potassium [Cozaar] 100 mg PO DAILY 07/05/24 07/05/24 History Metoprolol Tartrate [Lopressor] 50 mg PO BID 07/05/24 07/05/24 History Primidone [Mysoline] 50 mg PO TID 07/05/24 07/05/24 History Rosuvastatin [Crestor] 20 mg PO DAILY 07/05/24 07/05/24 History Tirzepatide [Mounjaro] 2.5 mg SQ TU 07/05/24 07/05/24 History Vitamin B Complex 1 cap PO DAILY 07/05/24 07/05/24 History amLODIPine [Norvasc] 10 mg PO DAILY 07/05/24 07/05/24 History hydrALAZINE HCL [Apresoline] 50 mg PO TID 07/05/24 07/05/24 History Allergies Allergy/AdvReac Type Severity Reaction Status Date / Time iodine Allergy Nausea & Verified 07/05/24 09:52 Vomiting Physical Exam Vitals: Vital Signs Temp Pulse Resp BP Pulse Ox FiO2 07/05/24 06:42 97.3 F L 58 L 20 108/47 99 07/05/24 06:00 58 L 20 101/44 97 07/05/24 05:42 96.6 F L 07/05/24 05:32 96.4 F L 62 18 104/52 97 07/05/24 04:43 95.5 F L 07/05/24 04:30 95.3 F L 52 L 22 107/56 98 07/05/24 04:12 95.0 F L 07/05/24 03:19 60 07/05/24 03:07 54 L 100 07/05/24 03:05 94 F L 07/05/24 03:00 49 L 24 103/52 97 07/05/24 02:32 52 L 22 97/50 98 07/05/24 02:00 50 L 98 07/05/24 01:30 93.6 F L 65 24 99/62 98 07/05/24 01:06 57 L 24 100/49 96 07/05/24 01:04 74 07/05/24 00:48 59 L 28 H 99/51 96 07/05/24 00:16 58 L 26 H 122/59 96 07/05/24 00:03 100 07/04/24 23:50 85 100 07/04/24 23:43 95.0 F L 68 28 H 160/79 96 Intake and Output 07/04/24 07/05/24 07/05/24 22:59 06:59 14:59 Other: Weight 77.111 kg The patient appeared well nourished and normally developed. Vital signs as documented. The patient was taken off the BiPAP and the patient is currently on 3 L of oxygen by nasal cannula. Head exam is unremarkable. No scleral icterus or corneal arcus noted. Neck is without jugular venous distension, thyromegaly, or carotid bruits. Carotid upstrokes are brisk bilaterally. Lungs are diminished bilaterally along with scattered rhonchi scattered expiratory wheezes throughout the lung good bilaterally. Cardiac exam reveals the PMI to be normally sized and situated. Rhythm is regular. First and second heart sounds normal. No murmurs, rubs or gallops. Abdominal exam reveals normal bowel sounds, no masses, no organomegaly and no aortic enlargement. Extremities are nonedematous and both femoral and pedal pulses are normal. Examination of the skin revealed no evidence of significant rashes, suspicious appearing nevi or other concerning lesions. Neurologically, the patient is awake and alert and the patient does not have any focal neurological deficit. Cranial nerves are essentially intact. Results - Laboratory Findings CBC and BMP: 07/05/24 15:08 07/05/24 15:08 ABG ABG pH 7.17 (7.35-7.45) L* 07/05/24 00:04 ABG pCO2 83 mmHg (35-45) H* 07/05/24 00:04 ABG pO2 291 mmHg (83-108) H 07/05/24 00:04 ABG O2 Saturation 99.6 % (94-97) H 07/05/24 00:04 PT/INR, D-dimer PT 10.3 sec (10.0-12.5) 07/04/24 23:52 INR 0.9 (<1.2) 07/04/24 23:52 Abnormal lab findings: Abnormal Labs 07/04/24 07/04/24 07/05/24 23:52 23:52 00:04 WBC 16.4 H Neutrophils # 12.6 H Monocytes # 1.1 H ABG pH 7.17 L* ABG pCO2 83 H* ABG pO2 291 H ABG HCO3 31 H ABG Total CO2 33 H ABG O2 Saturation 99.6 H Sodium 127 L Chloride 87 L Carbon Dioxide 32 H Glucose 177 H Troponin I 07/05/24 02:59 WBC Neutrophils # Monocytes # ABG pH ABG pCO2 ABG pO2 ABG HCO3 ABG Total CO2 ABG O2 Saturation Sodium Chloride Carbon Dioxide Glucose Troponin I 0.041 H* - Diagnostic Findings Chest x-ray: image reviewed Assessment and Plan Plan: Acute exacerbation of COPD with secondary acute on top of chronic hypoxic/hypercapnic respiratory failure and questionable left lower lobe pulmonary infiltrate/pneumonia. Viral 4 Plex was negative. The patient is currently on a BiPAP. Awake and alert. No signs of any CO2 narcosis. Improved over the past few hours. Accordingly, the patient was taken off the BiPAP and the patient was placed on 3 L of oxygen by nasal cannula. Advanced COPD, maintained on Trelegy Ellipta on outpatient basis in combination with ProAir rescue inhaler, albuterol updrafts and oxygen. The patient is a chronic smoker and is maintained on 3 days of oxygen by nasal cannula Acute on top of chronic shortness of breath secondary to above Coronary artery disease with previous history of cardiac catheterization in , showed 20% left main, 40 to 50% of the mid LAD, 60 to 70% circumflex and 30% RCA. No intervention was done and the patient was offered medical therapy. Elevated trop I, 0.4 x2, likely demand type of myocardial ischemia Hyponatremia, hypochloremic, currently on IV fluids Critical stenosis left carotid artery status post left carotid endarterectomy on 06/05/2023 Hypertension Hyperlipidemia Diabetes mellitus type 2 on Mounjaro 2.5 mg Basal cell carcinoma with surgical removal and skin graft on left side of the face Tobacco abuse, 1/2 PPD Smoker Discontinue the BiPAP and the patient has been placed on O2 at 3 L Continue DuoNeb nebulizer he was on the clock Allow the patient to utilize Trelegy Ellipta from home IV Solu-Medrol 60 mg every 6 hours Empiric antibiotic coverage with IV Rocephin Continue doxycycline Continue IV fluids normal saline at rate of 75 cc an hour Monitor electrolytes including sodium and chloride levels Lovenox for DVT prophylaxis Smoking cessation counseling Will continue to follow
[2024-07-05 17:06] LABS: Glucose,Whole Blood 261 mg/dL (70-110)
[2024-07-05] MEDS: HYDROcodone/APAP 5-325MG 1 EACH TAB PO PRN (17:16)
--- NOTE | 2024-07-05 17:40 | P.HPIM ---
History of Present Illness H&P Date: 07/05/24 Angel Roy, is a 69-year-old male who presented to [facility] emergency room with a chief complaint of worsening shortness of breath He was evaluated in the emergency room vital examination on presentation revealed a temperature of 98.9 pulse 68 respiration 18 blood pressure 129/66 pulse ox 93% on 3 L nasal cannula Laboratory data revealed a white blood count of 8.4 hemoglobin 14.0 platelet count 150 sodium 126 potassium 4.4 chloride 94 CO2 23 BUN 17 creatinine 0.56 Testing in the emergency room revealed chest x-ray revealed bilateral lower lung opacities may represent atelectasis versus infectious process EKG revealed sinus rhythm with minimal ST depression in the lateral leads Patient was admitted to medical floor for further evaluation and treatment Past Medical History Past Medical History: Cancer, COPD, Diabetes Mellitus, Hyperlipidemia, Hypertension Additional Past Medical History / Comment(s): blocked arteries, basal cell skin ca ,uses home O2 @ 2L NC as needed at nighttime. History of Any Multi-Drug Resistant Organisms: None Reported Past Surgical History: Heart Catheterization Additional Past Surgical History / Comment(s): basal cell by eye with skin graft, colonoscopy Past Anesthesia/Blood Transfusion Reactions: No Reported Reaction Additional Past Anesthesia/Blood Transfusion Reaction / Comment(s): no blood tx hx Past Psychological History: Anxiety Smoking Status: Current every day smoker - Past Family History Brother(s) Family Medical History: Cancer Additional Family Medical History / Comment(s): 2 brother prostate, 1 copd pulm htn all Medications and Allergies Home Medications Medication Instructions Recorded Confirmed Type Albuterol Nebulized [Ventolin 2.5 mg INHALATION RT-QID 07/05/24 07/05/24 History Nebulized] Albuterol Sulfate [Albuterol 1 - 2 puff INHALATION RT-QID PRN 07/05/24 07/05/24 History Sulfate Hfa] Aspirin EC [Ecotrin Low Dose] 81 mg PO DAILY 07/05/24 07/05/24 History Fluticasone/Umeclidin/Vilanter 1 puff INHALATION RT-DAILY 07/05/24 07/05/24 History [Trelegy Ellipta 100-62.5-25] Furosemide [Lasix] 20 mg PO DAILY 07/05/24 07/05/24 History HYDROcodone/APAP 7.5-325MG [[place] 1 tab PO TID 07/05/24 07/05/24 History 7.5-325] Losartan Potassium [Cozaar] 100 mg PO DAILY 07/05/24 07/05/24 History Metoprolol Tartrate [Lopressor] 50 mg PO BID 07/05/24 07/05/24 History Primidone [Mysoline] 50 mg PO TID 07/05/24 07/05/24 History Rosuvastatin [Crestor] 20 mg PO DAILY 07/05/24 07/05/24 History Tirzepatide [Mounjaro] 2.5 mg SQ TU 07/05/24 07/05/24 History Vitamin B Complex 1 cap PO DAILY 07/05/24 07/05/24 History amLODIPine [Norvasc] 10 mg PO DAILY 07/05/24 07/05/24 History hydrALAZINE HCL [Apresoline] 50 mg PO TID 07/05/24 07/05/24 History Allergies Allergy/AdvReac Type Severity Reaction Status Date / Time iodine Allergy Nausea & Verified 07/05/24 09:52 Vomiting Physical Exam Vitals: Vital Signs Temp Pulse Resp BP Pulse Ox FiO2 07/05/24 09:54 70 07/05/24 06:42 97.3 F L 58 L 20 108/47 99 07/05/24 06:00 58 L 20 101/44 97 07/05/24 05:42 96.6 F L 07/05/24 05:32 96.4 F L 62 18 104/52 97 07/05/24 04:43 95.5 F L 07/05/24 04:30 95.3 F L 52 L 22 107/56 98 07/05/24 04:12 95.0 F L 07/05/24 03:19 60 07/05/24 03:07 54 L 100 07/05/24 03:05 94 F L 07/05/24 03:00 49 L 24 103/52 97 07/05/24 02:32 52 L 22 97/50 98 07/05/24 02:00 50 L 98 07/05/24 01:30 93.6 F L 65 24 99/62 98 07/05/24 01:06 57 L 24 100/49 96 07/05/24 01:04 74 07/05/24 00:48 59 L 28 H 99/51 96 07/05/24 00:16 58 L 26 H 122/59 96 07/05/24 00:03 100 07/04/24 23:50 85 100 07/04/24 23:43 95.0 F L 68 28 H 160/79 96 Intake and Output 07/04/24 07/05/24 07/05/24 22:59 06:59 14:59 Other: Weight 77.111 kg In general patient is alert and oriented x 3 in no distress HEENT head normocephalic and atraumatic Neck is supple no JVD no goiter no lymphadenopathy no carotid bruit Chest examination reveals a scattered crackles bilaterally with mild wheezing Cardiac exam reveals regular heart sounds S1 and S2 no gallops no murmurs Abdomen is soft nontender no organomegaly with normal bowel sounds Extremity exam reveals no edema no cyanosis or clubbing Neurological examination reveals no gross focal deficits Results CBC & Chem 7: 07/05/24 15:08 07/05/24 15:08 Labs: Abnormal Lab Results - Last 24 Hours (Table) 07/04/24 07/04/24 07/05/24 Range/Units 23:52 23:52 00:04 WBC 16.4 H (3.8-10.6) k/uL Neutrophils # 12.6 H (1.3-7.7) k/uL Monocytes # 1.1 H (0-1.0) k/uL ABG pH 7.17 L* (7.35-7.45) ABG pCO2 83 H* (35-45) mmHg ABG pO2 291 H (83-108) mmHg ABG HCO3 31 H (21-25) mmol/L ABG Total CO2 33 H (19-24) mmol/L ABG O2 Saturation 99.6 H (94-97) % Sodium 127 L (137-145) mmol/L Chloride 87 L (98-107) mmol/L Carbon Dioxide 32 H (22-30) mmol/L Glucose 177 H (74-99) mg/dL Troponin I (0.000-0.034) ng/mL 07/05/24 07/05/24 Range/Units 02:59 07:00 WBC (3.8-10.6) k/uL Neutrophils # (1.3-7.7) k/uL Monocytes # (0-1.0) k/uL ABG pH (7.35-7.45) ABG pCO2 (35-45) mmHg ABG pO2 (83-108) mmHg ABG HCO3 (21-25) mmol/L ABG Total CO2 (19-24) mmol/L ABG O2 Saturation (94-97) % Sodium (137-145) mmol/L Chloride (98-107) mmol/L Carbon Dioxide (22-30) mmol/L Glucose (74-99) mg/dL Troponin I 0.041 H* 0.047 H* (0.000-0.034) ng/mL Assessment and Plan Plan: Acute exacerbation of chronic obstructive pulmonary disease Acute on chronic hypoxic and hypercapnic respiratory failure Elevated troponin level Underlying history of coronary artery disease, with cardiac catheterization in 2022 revealed moderate coronary artery disease no intervention done Underlying history of hypertension Underlying history of hyperlipidemia Underlying history of carotid stenosis with history of left carotid endarterecto my Underlying history of diabetes mellitus type 2 Continued tobacco abuse patient was counseled in length in regard to smoking cessation Previous history of basal cell carcinoma, with history of left facial surgery At this time patient is admitted to telemetry floor Home medications reviewed and reordered Patient was started on IV antibiotics and IV Solu-Medrol Pulmonary and cardiology consultation requested Patient was counseled in length in regard to smoking cessation Will follow closely
--- NOTE | 2024-07-05 19:25 | CA ---
Transthoracic Echo Report Name: Angel Roy Age: 69 Gender: M : 1955 Exam Date: 07/05/2024 14:06 Exam Location: [facility] Ht (in): 68 Wt (lb): 170 Ordering Physician: Yvan Suresh MD Attending/Referring Phys: Supervisor [employer] Ramon Romero RDCS Procedure CPT: Indications: sob Cardiac Hx: Cancer, COPD, Diabetes, HTN, smoker Technical Quality: Technically difficult study Contrast 1: Definity Total Dose (mL): 2 Contrast 2: Total Dose (mL): MEASUREMENTS (Male / Female) Normal Values 2D ECHO LV Diastolic Diameter PLAX 5.2 cm 4.2 - 5.9 / 3.9 - 5.3 cm LV Systolic Diameter PLAX 3.3 cm IVS Diastolic Thickness 1.1 cm 0.6 - 1.0 / 0.6 - 0.9 cm LVPW Diastolic Thickness 1.0 cm 0.6 - 1.0 / 0.6 - 0.9 cm LV Relative Wall Thickness 0.4 LVOT Diameter 1.9 cm LA Systolic Diameter LX 3.5 cm 3.0 - 4.0 / 2.7 - 3.8 cm LV Diastolic Volume MOD BP 182.1 cm??? 67 - 155 / 56 - 104 cm??? LV Systolic Volume MOD BP 46.8 cm??? 22 - 58 / 19 - 49 cm??? LV Ejection Fraction MOD BP 74.3 % >= 55 % LV Diastolic Volume MOD 4C 181.2 cm??? LV Systolic Volume MOD 4C 47.6 cm??? LV Ejection Fraction MOD 4C 73.7 % LV Diastolic Length 4C 9.1 cm LV Systolic Length 4C 7.2 cm LV Diastolic Volume MOD 2C 182.6 cm??? LV Systolic Volume MOD 2C 46.7 cm??? LV Ejection Fraction MOD 2C 74.4 % LV Diastolic Length 2C 9.2 cm LV Systolic Length 2C 7.1 cm LA Volume 62.9 cm??? 18 - 58 / 22 - 52 cm??? LA Volume Index 32.5 cm???/m??? 16 - 28 cm???/m??? DOPPLER MV Area PHT 3.0 cm??? Mitral E Point Velocity 89.6 cm/s Mitral A Point Velocity 100.3 cm/s Mitral E to A Ratio 0.9 MV Deceleration Time 256.7 ms TR Peak Velocity 286.3 cm/s TR Peak Gradient 32.8 mmHg Right Atrial Pressure 5.0 mmHg Pulmonary Artery Systolic Pressu 37.8 mmHg Right Ventricular Systolic Press 37.8 mmHg FINDINGS Left Ventricle Left ventricular ejection fraction is estimated at 60-65 %. Mildly increased septal wall thickness. Moderately increased left ventricular diastolic volume. Normal left ventricular systolic function with no obvious regional wall motion abnormalities. Right Ventricle Mild right ventricular dilatation. Mild pulmonary hypertension. Right Atrium Moderate right atrial dilatation. Left Atrium Mildly increased left atrial volume. Mildly increased left atrial area. Mitral Valve Mitral valve thickened. No mitral stenosis. No mitral regurgitation. Aortic Valve Aortic valve not well visualized. No aortic stenosis. No aortic regurgitation. Tricuspid Valve Structurally normal tricuspid valve. No tricuspid stenosis. Trace tricuspid regurgitation. Pulmonic Valve Pulmonic valve not well visualized. No pulmonic stenosis. No pulmonic regurgitation. Pericardium No pericardial effusion. No pleural effusion. Aorta Aortic root and proximal ascending aorta not well visualized. CONCLUSIONS Indication Shortness of breath diabetes hypertension LVH with preserved systolic function Biatrial enlargement Previewed by: Dr. Reggie Almanza MD (Electronically Signed) Final Date: 05 July 2024 19:24
[2024-07-05 20:32] LABS: Glucose,Whole Blood 198 mg/dL (70-110)
[2024-07-06 06:29] LABS: Basophils % (A) 0 %; Eosinophils % (A) 0 %; HCT 37.4 % (39.0-53.0); HGB 12.6 gm/dL (13.0-17.5); Lymphocytes # (A) 0.3 k/uL (1.0-4.8); Lymphocytes % (A) 4 %; MCH 31.9 pg (25.0-35.0); MCHC 33.7 g/dL (31.0-37.0); MCV 94.7 fL (80.0-100.0); Mean Platelet Volume 7.9; Monocytes # (A) 0.2 k/uL (0-1.0); Monocytes % (A) 2 %; Neutrophils # (A) 8.1 k/uL (1.3-7.7); Neutrophils % (A) 93 %; Platelet Count 151 k/uL (150-450); RBC 3.95 m/uL (4.30-5.90); WBC 8.6 k/uL (3.8-10.6)
[2024-07-06 06:50] LABS: ALT 19 U/L (4-49); AST 23 U/L (17-59); African American GFR (CKD) >90 (>60 ml/min/1.73 sqM); Albumin 3.3 g/dL (3.5-5.0); Alkaline Phosphatase 68 U/L (38-126); Anion Gap 6 mmol/L; Blood Urea Nitrogen 16 mg/dL (9-20); Calcium 8.4 mg/dL (8.4-10.2); Carbon Dioxide 24 mmol/L (22-30); Chloride 95 mmol/L (98-107); Glucose 158 mg/dL (74-99); Non-African American GFR(CKD) >90 (>60 ml/min/1.73 sqM); Potassium 4.4 mmol/L (3.5-5.1); Sodium 125 mmol/L (137-145); Total Bilirubin 0.5 mg/dL (0.2-1.3); Total Protein 5.5 g/dL (6.3-8.2)
[2024-07-06 08:09] LABS: Glucose,Whole Blood 178 mg/dL (70-110)
[2024-07-06] MEDS ORDERED: REGADENOSON 0.4 MG/5 ML SYRINGE IV PRN (09:30)
[2024-07-06] MEDS ORDERED: AMINOPHYLLINE 500 MG/20 ML VIAL IV PRN (09:30)
[2024-07-06] MEDS ORDERED: CAFFEINE CITRATE 60 MG/3 ML VIAL IV PRN (09:30)
--- NOTE | 2024-07-06 09:41 | P.CRDCN ---
History of Present Illness Consult date: 07/06/24 History of present illness: HISTORY OF PRESENTING ILLNESS: 77-year-old male with known to Dr. Pina. Prior history of moderate nonobstructive coronary artery disease. Last cath in 2022 shows 20% left main disease, 40 to 50% mid LAD, 60 to 70% and small caliber ramus, 20 to 30% and LCx, 20 to 30% in RCA. He presented to the hospital because of increased worsening shortness of breath. He has prior history of COPD chronic hypoxia on 3 L oxygen only at nighttime.. On 3 L on admission he was saturating well Katya he was noticed to be hypercapnic with respiratory acidosis on ABG. Chest x-ray does not show any significant pulmonary congestion or consolidation Admission Vitals: 160/79 mmHg, heart rate 68 bpm Admission Labs: A1c 5.7, troponin x 2 were negative, repeat troponin was elevated at 0.04 with a flat pattern, NT-proBNP 373, Admission EKG: Sinus rhythm Imaging: Chest x-ray does not show any significant consolidation or congestion Echo from this hospital admission shows an EF of 55 to 60%, No obvious regional wall motion abnormality, no significant valvular dysfunction reported REVIEW OF SYSTEMS: 14 point review of system is negative except what is mentioned above in HPI. PHYSICAL EXAMINATION: Neck: Brisk carotid upstroke, no jugular venous distention. Lungs: Minimal wheezing in bilateral lower lung bases Heart: Regular rate and rhythm, S1-S2, , no murmur or rub. Abdomen: Soft nontender, positive bowel sounds. Extremities: No edema, intact distal pulses. Neuro: Alert, oritented, no focal deficits. Detailed neuro exam was not performe d. ASSESSMENT: # Dyspnea on exertion # Mildly elevated troponin with a flat pattern, less likely ACS # Moderate nonobstructive CAD with 20% left main disease, 20% disease in RCA, LCx, 50% disease in LAD, 60 to 70% disease and small ramus. # Ex-smoker # PAD with prior left carotid endarterectomy # Hyponatremia # Essential hypertension # Alcohol use 4-5 beers per day PLAN: Continue aspirin, Lipitor Continue losartan 100 mg, amlodipine 10 mg, metoprolol tartrate 50 mg twice daily Refrain from using hydralazine. If elevated blood pressure, consider adding hydrochlorothiazide and Aldactone. Recommend continuous oxygen use and home oxygen evaluation prior to discharge Refrain from alcohol use Plan for dobutamine echo stress test tomorrow a.m. hold beta-andi in a.m. Rory Colby MD, FACC, RPVI Thank you for allowing [facility] to participate in this patient's care. Feel free to reach out in case of any followup questions. Past Medical History Past Medical History: Cancer, COPD, Diabetes Mellitus, Hyperlipidemia, Hype rtension Additional Past Medical History / Comment(s): blocked arteries, basal cell skin ca ,uses home O2 @ 2L NC as needed at nighttime. History of Any Multi-Drug Resistant Organisms: None Reported Past Surgical History: Heart Catheterization Additional Past Surgical History / Comment(s): basal cell by eye with skin graft, colonoscopy Past Anesthesia/Blood Transfusion Reactions: No Reported Reaction Additional Past Anesthesia/Blood Transfusion Reaction / Comment(s): no blood tx hx Past Psychological History: Anxiety Smoking Status: Current every day smoker - Past Family History Brother(s) Family Medical History: Cancer Additional Family Medical History / Comment(s): 2 brother prostate, 1 copd pulm htn all Medications and Allergies Home Medications Medication Instructions Recorded Confirmed Type Albuterol Nebulized [Ventolin 2.5 mg INHALATION RT-QID 07/05/24 07/05/24 History Nebulized] Albuterol Sulfate [Albuterol 1 - 2 puff INHALATION RT-QID PRN 07/05/24 07/05/24 History Sulfate Hfa] Aspirin EC [Ecotrin Low Dose] 81 mg PO DAILY 07/05/24 07/05/24 History Fluticasone/Umeclidin/Vilanter 1 puff INHALATION RT-DAILY 07/05/24 07/05/24 History [Trelegy Ellipta 100-62.5-25] Furosemide [Lasix] 20 mg PO DAILY 07/05/24 07/05/24 History HYDROcodone/APAP 7.5-325MG [Alex 1 tab PO TID 07/05/24 07/05/24 History 7.5-325] Losartan Potassium [Cozaar] 100 mg PO DAILY 07/05/24 07/05/24 History Metoprolol Tartrate [Lopressor] 50 mg PO BID 07/05/24 07/05/24 History Primidone [Mysoline] 50 mg PO TID 07/05/24 07/05/24 History Rosuvastatin [Crestor] 20 mg PO DAILY 07/05/24 07/05/24 History Tirzepatide [Mounjaro] 2.5 mg SQ TU 07/05/24 07/05/24 History Vitamin B Complex 1 cap PO DAILY 07/05/24 07/05/24 History amLODIPine [Norvasc] 10 mg PO DAILY 07/05/24 07/05/24 History hydrALAZINE HCL [Apresoline] 50 mg PO TID 07/05/24 07/05/24 History Allergies Allergy/AdvReac Type Severity Reaction Status Date / Time iodine Allergy Nausea & Verified 07/05/24 09:52 Vomiting Physical Exam Vitals: Vital Signs Temp Pulse Resp BP Pulse Ox FiO2 07/06/24 08:14 86 07/06/24 08:05 93 L 07/06/24 08:03 74 07/06/24 08:00 97.8 F 73 18 143/69 94 L 07/06/24 06:10 84 18 143/69 94 L 07/06/24 02:27 80 18 123/57 94 L 07/05/24 20:49 77 07/05/24 20:41 74 07/05/24 20:26 83 18 117/44 91 L 07/05/24 17:19 73 20 145/67 92 L 07/05/24 16:55 74 07/05/24 16:45 69 07/05/24 15:03 98.9 F 68 18 129/66 93 L 07/05/24 13:07 65 07/05/24 12:56 93 L 07/05/24 12:53 71 07/05/24 11:33 94 L 07/05/24 10:19 57 L 22 132/67 98 07/05/24 10:18 57 L 07/05/24 09:55 58 L 07/05/24 09:54 40 Results 07/06/24 05:27 07/06/24 05:27 Cardiac Enzymes 07/05/24 07/05/24 07/06/24 Range/Units 10:40 15:08 05:27 AST 26 23 (17-59) U/L Troponin I 0.027 (0.000-0.034) ng/mL CBC 07/05/24 07/06/24 Range/Units 15:08 05:27 WBC 8.4 8.6 (3.8-10.6) k/uL RBC 4.33 3.95 L (4.30-5.90) m/uL Hgb 14.0 12.6 L (13.0-17.5) gm/dL Hct 41.2 37.4 L (39.0-53.0) % Plt Count 150 151 (150-450) k/uL Comprehensive Metabolic Panel 07/05/24 07/06/24 Range/Units 15:08 05:27 Sodium 126 L 125 L (137-145) mmol/L Potassium 4.4 4.4 (3.5-5.1) mmol/L Chloride 94 L 95 L (98-107) mmol/L Carbon Dioxide 23 24 (22-30) mmol/L BUN 17 16 (9-20) mg/dL Creatinine 0.56 L 0.59 L (0.66-1.25) mg/dL Glucose 179 H 158 H (74-99) mg/dL Calcium 8.7 8.4 (8.4-10.2) mg/dL AST 26 23 (17-59) U/L ALT 21 19 (4-49) U/L Alkaline Phosphatase 69 68 (38-126) U/L Total Protein 5.9 L 5.5 L (6.3-8.2) g/dL Albumin 3.7 3.3 L (3.5-5.0) g/dL Current Medications Generic Name Dose Route Start Last Admin Trade Name Freq PRN Reason Stop Dose Admin Acetaminophen 650 mg 07/05/24 01:45 Acetaminophen Tab 325 Mg Tab PO Q6HR PRN Mild Pain or Fever > 100.5 Hydrocodone Bitart/Acetaminophen 1 each 07/05/24 01:45 07/05/24 23:46 Hydrocodone/Apap 5-325mg 1 Each Tab PO 1 each Q6HR PRN Administration Moderate to Severe Pain (4-10) Albuterol/Ipratropium 3 ml 07/05/24 01:45 Ipratropium-Albuterol 3 Ml Neb INHALATION RT-Q2H PRN Shortness Of Breath Or Wheezing Albuterol/Ipratropium 3 ml 07/05/24 08:00 07/06/24 08:03 Ipratropium-Albuterol 3 Ml Neb INHALATION 3 ml RT-QID SATINDER Administration Amlodipine Besylate 10 mg 07/06/24 09:30 Amlodipine 10 Mg Tab PO DAILY SATINDER Aspirin 81 mg 07/06/24 09:30 Aspirin 81 Mg PO DAILY [facility] Atorvastatin Calcium 40 mg 07/05/24 09:00 07/06/24 08:30 Atorvastatin 40 Mg Tab PO 40 mg DAILY SATINDER Administration Dextrose/Water 25 ml 07/05/24 10:00 Dextrose 50% Syringe 50 Ml IVP PER PROTOCOL PRN Hypoglycemia Protocol Dextrose/Water 50 ml 07/05/24 10:00 Dextrose 50% Syringe 50 Ml IVP PER PROTOCOL PRN Hypoglycemia Protocol Doxycycline Hyclate 100 mg 07/05/24 09:00 07/06/24 08:30 Doxycycline 100 Mg Tablet PO 07/09/24 21:01 100 mg BID SATINDER Administration Protocol Enoxaparin Sodium 40 mg 07/05/24 09:00 07/06/24 08:29 Enoxaparin 40 Mg/0.4 Ml Syringe SQ 40 mg DAILY SATINDER Administration Sodium Chloride 1,000 mls @ 75 mls/hr 07/05/24 01:45 07/06/24 05:59 Saline 0.9% IV Not Given .[id number] [facility] Ceftriaxone Sodium 1 gm/ 50 mls @ 100 mls/hr 07/05/24 21:00 07/05/24 20:25 Sodium Chloride IVPB 100 mls/hr Q24H SATINDER Administration Protocol Insulin Human Lispro 0 unit 07/05/24 12:30 07/06/24 08:29 Insulin Lispro (Humalog) 100 Unit/Ml 10 Ml Vl SQ 2 unit ACHS SATINDER Administration Protocol Losartan Potassium 100 mg 07/06/24 09:30 Losartan 50 Mg Tab PO DAILY [facility] Methylprednisolone Sodium Succinate 60 mg 07/05/24 12:00 07/06/24 06:06 Methylprednisolone Sod Succi 125 Mg/2 Ml Vial IV 60 mg Q6HR SATINDER Administration Metoprolol Tartrate 50 mg 07/05/24 09:00 07/06/24 08:30 Metoprolol Tartrate 50 Mg Tab PO 50 mg BID SATINDER Administration Naloxone HCl 0.2 mg 07/05/24 01:45 Naloxone 0.4 Mg/Ml 1 Ml Vial IVP Q2M PRN Opioid Reversal 07/06/24 05:27 07/06/24 05:27
--- NOTE | 2024-07-06 10:19 | P.PN ---
Subjective Progress Note Date: 07/06/24 Angel Roy, is a 69-year-old male who presented to [facility] emergency room with a chief complaint of worsening shortness of breath He was evaluated in the emergency room vital examination on presentation revealed a temperature of 98.9 pulse 68 respiration 18 blood pressure 129/66 p ulse ox 93% on 3 L nasal cannula Laboratory data revealed a white blood count of 8.4 hemoglobin 14.0 platelet count 150 sodium 126 potassium 4.4 chloride 94 CO2 23 BUN 17 creatinine 0.56 Testing in the emergency room revealed chest x-ray revealed bilateral lower lung opacities may represent atelectasis versus infectious process EKG revealed sinus rhythm with minimal ST depression in the lateral leads Patient was admitted to medical floor for further evaluation and treatment On 07/06/2024 patient is alert and oriented x 3. Sodium low at 125 continue 0.9 at 75 and recheck in a.m. Patient does report he drinks 4-5 beers a day we will add alcohol withdrawal protocol. Pulmonary and cardiology services are following patient remains on antibiotics for pneumonia. Patient remains on IV Solu-Medrol. Per cardiology possible stress test. At this time patient denies chest pain or shortness of breath. Patient denies nausea vomiting or diarrhea. Patient denies any urinary burning or frequency Objective - Vital Signs Vital signs: Vital Signs Temp 97.8 F 07/06/24 08:00 Pulse 86 07/06/24 08:14 Resp 18 07/06/24 08:00 BP 143/69 07/06/24 08:00 Pulse Ox 93 L 07/06/24 08:05 FiO2 40 07/05/24 09:54 - Exam In general patient is alert and oriented x 3 in no distress HEENT head normocephalic and atraumatic Neck is supple no JVD no goiter no lymphadenopathy no carotid bruit Chest examination reveals a scattered crackles bilaterally with mild wheezing Cardiac exam reveals regular heart sounds S1 and S2 no gallops no murmurs Abdomen is soft nontender no organomegaly with normal bowel sounds Extremity exam reveals no edema no cyanosis or clubbing Neurological examination reveals no gross focal deficits - Labs CBC & Chem 7: 07/06/24 05:27 07/06/24 05:27 Labs: Abnormal Lab Results - Last 24 Hours (Table) 07/05/24 07/05/24 07/05/24 Range/Units 12:55 15:08 15:08 RBC (4.30-5.90) m/uL Hgb (13.0-17.5) gm/dL Hct (39.0-53.0) % Neutrophils # (1.3-7.7) k/uL Lymphocytes # 0.4 L (1.0-4.8) k/uL Sodium 126 L (137-145) mmol/L Chloride 94 L (98-107) mmol/L Creatinine 0.56 L (0.66-1.25) mg/dL Glucose 179 H (74-99) mg/dL POC Glucose (mg/dL) 138 H (70-110) mg/dL Total Protein 5.9 L (6.3-8.2) g/dL Albumin (3.5-5.0) g/dL 07/05/24 07/05/24 07/06/24 Range/Units 17:05 20:31 05:27 RBC 3.95 L (4.30-5.90) m/uL Hgb 12.6 L (13.0-17.5) gm/dL Hct 37.4 L (39.0-53.0) % Neutrophils # 8.1 H (1.3-7.7) k/uL Lymphocytes # 0.3 L (1.0-4.8) k/uL Sodium (137-145) mmol/L Chloride (98-107) mmol/L Creatinine (0.66-1.25) mg/dL Glucose (74-99) mg/dL POC Glucose (mg/dL) 261 H 198 H (70-110) mg/dL Total Protein (6.3-8.2) g/dL Albumin (3.5-5.0) g/dL 07/06/24 07/06/24 Range/Units 05:27 08:07 RBC (4.30-5.90) m/uL Hgb (13.0-17.5) gm/dL Hct (39.0-53.0) % Neutrophils # (1.3-7.7) k/uL Lymphocytes # (1.0-4.8) k/uL Sodium 125 L (137-145) mmol/L Chloride 95 L (98-107) mmol/L Creatinine 0.59 L (0.66-1.25) mg/dL Glucose 158 H (74-99) mg/dL POC Glucose (mg/dL) 178 H (70-110) mg/dL Total Protein 5.5 L (6.3-8.2) g/dL Albumin 3.3 L (3.5-5.0) g/dL Assessment and Plan Plan: Acute exacerbation of chronic obstructive pulmonary disease Acute on chronic hypoxic and hypercapnic respiratory failure Elevated troponin leve Hyponatremia continue normal saline at 75 l Underlying history of coronary artery disease, with cardiac catheterization in 2022 revealed moderate coronary artery disease no intervention done Underlying history of hypertension Underlying history of hyperlipidemia Underlying history of carotid stenosis with history of left carotid endarterectomy Underlying history of diabetes mellitus type 2 Continued tobacco abuse patient was counseled in length in regard to smoking cessation Previous history of basal cell carcinoma, with history of left facial surgery At this time patient is admitted to telemetry floor Home medications reviewed and reordered Patient was started on IV antibiotics and IV Solu-Medrol Pulmonary and cardiology consultation requested Patient was counseled in length in regard to smoking cessation Will follow closely
[2024-07-06] MEDS: LOSARTAN 50 MG TAB PO SCH (10:26)
[2024-07-06] MEDS: amLODIPine 10 MG TAB PO SCH (10:26)
[2024-07-06] MEDS: ASPIRIN 81 MG PO SCH (10:26)
[2024-07-06 12:06] LABS: Glucose,Whole Blood 197 mg/dL (70-110)
[2024-07-06 14:48] LABS: LDL Cholesterol,Calculated 25.5 mg/dL (0.0-131.0); VLDL Calculation 10.36 mg/dL (5.00-40.00)
--- NOTE | 2024-07-06 15:35 | P.PN ---
Subjective Progress Note Date: 07/06/24 Patient is a 69-year-old male history CHF, COPD presenting today for shortness of breath. On home 2 L oxygen typically. The patient is also maintained on Trelegy Ellipta 1 puff a day on an outpatient basis. Over the last week has had worsening shortness of breath today was the worst it has ever been. He has been using inhaler multiple times a day without improvement of symptoms. Tonight called due to patient's difficulty in breathing. On EMS arrival patient was tripoding, cyanotic with a pulse ox of 70% on room air, dyspneic. Accordingly, the patient was placed on a BiPAP and the patient remains on BiPAP at a pressure of 12 over 5 cm of water with an FiO2 of 100%. This current pulse ox is 97%. I reviewed the chest x-ray from the current admission and the patient has COPD with chronic interstitial changes. No evidence of any airspace disease. No evidence of any pneumonia. The white cell count of 8.4 with a hemoglobin of 14 and a platelet count of 150. Sodium level was low at 126, chloride was at 94, BUN was 17 with a creatinine of 0.5. LFTs are normal. Troponins were 0.040.04 and 0.02 respectively. The patient is a chronic smoker. He is known to have diabetes mellitus type 2 maintained on Mounjaro on an outpatient basis. He also has bilateral carotid artery disease and the patient has undergone a left carotid endarterectomy that was successful.) she drinks alc ohol and he also has hypertension. His FEV1 has been in the order of 46% of predicted based on the previous spirometry. His most recent low-dose CAT scan of the chest on 08/27/2023 showed no evidence of any lesions or malignancy. At the time of my evaluation, the patient seemed more comfortable. His FiO2 was dropped down to 40% and subsequently patient was transitioned to oxygen by nasal cannula. No altered mentation. No signs of any CO2 narcosis. The viral 4 Plex was negative. On 07/06/2024, the patient is being seen in follow-up. The patient is feeling better less short of breath compared to yesterday. The patient was taken off the BiPAP and the patient is currently on 3 L of oxygen by nasal cannula with a pulse ox of 94%. Denies having any chest pain. No pleurisy. No hemoptysis. The patient was also seen by cardiology and is being considered for a dobutamine echo stress test and a.m. Based on that, the beta-blockers have been placed on hold. In terms of his respiratory status, remains on DuoNeb nebulizer he was on the clock, he remains on IV Solu-Medrol 60 mg every 6 hours. Remains on empiric antibiotic coverage with IV Rocephin. He is also on doxycycline. Receiving Lovenox for DVT prophylaxis. White cell count of 8.6 with a hemoglobin 12.6 and a platelet count of 151. BUN 16 with a creatinine of 0.5 and a sodium levels at 125 and a chloride is 95. The patient remains on normal saline at rate of 75 cc an hour. No other significant events overnight. Objective - Vital Signs Vital signs: Vital Signs Temp 97.8 F 07/06/24 08:00 Pulse 86 07/06/24 08:14 Resp 18 07/06/24 08:00 BP 143/69 07/06/24 08:00 Pulse Ox 93 L 07/06/24 08:05 FiO2 40 07/05/24 09:54 - Exam The patient appeared well nourished and normally developed. Vital signs as documented. The patient is currently on 3 L of oxygen by nasal cannula. Head exam is unremarkable. No scleral icterus or corneal arcus noted. Neck is without jugular venous distension, thyromegaly, or carotid bruits. Carotid upstrokes are brisk bilaterally. Lungs are diminished bilaterally along with scattered rhonchi scattered expiratory wheezes throughout the lung good bilaterally. Cardiac exam reveals the PMI to be normally sized and situated. Rhythm is regular. First and second heart sounds normal. No murmurs, rubs or gallops. Abdominal exam reveals normal bowel sounds, no masses, no organomegaly and no aortic enlargement. Extremities are nonedematous and both femoral and pedal pulses are normal. Examination of the skin revealed no evidence of significant rashes, suspicious appearing nevi or other concerning lesions. Neurologically, the patient is awake and alert and the patient does not have any focal neurological deficit. Cranial nerves are essentially intact. - Labs CBC & Chem 7: 07/06/24 05:27 07/06/24 05:27 Labs: Abnormal Lab Results - Last 24 Hours (Table) 07/05/24 07/05/24 07/05/24 Range/Units 12:55 15:08 15:08 RBC (4.30-5.90) m/uL Hgb (13.0-17.5) gm/dL Hct (39.0-53.0) % Neutrophils # (1.3-7.7) k/uL Lymphocytes # 0.4 L (1.0-4.8) k/uL Sodium 126 L (137-145) mmol/L Chloride 94 L (98-107) mmol/L Creatinine 0.56 L (0.66-1.25) mg/dL Glucose 179 H (74-99) mg/dL POC Glucose (mg/dL) 138 H (70-110) mg/dL Total Protein 5.9 L (6.3-8.2) g/dL Albumin (3.5-5.0) g/dL 07/05/24 07/05/24 07/06/24 Range/Units 17:05 20:31 05:27 RBC 3.95 L (4.30-5.90) m/uL Hgb 12.6 L (13.0-17.5) gm/dL Hct 37.4 L (39.0-53.0) % Neutrophils # 8.1 H (1.3-7.7) k/uL Lymphocytes # 0.3 L (1.0-4.8) k/uL Sodium (137-145) mmol/L Chloride (98-107) mmol/L Creatinine (0.66-1.25) mg/dL Glucose (74-99) mg/dL POC Glucose (mg/dL) 261 H 198 H (70-110) mg/dL Total Protein (6.3-8.2) g/dL Albumin (3.5-5.0) g/dL 07/06/24 07/06/24 Range/Units 05:27 08:07 RBC (4.30-5.90) m/uL Hgb (13.0-17.5) gm/dL Hct (39.0-53.0) % Neutrophils # (1.3-7.7) k/uL Lymphocytes # (1.0-4.8) k/uL Sodium 125 L (137-145) mmol/L Chloride 95 L (98-107) mmol/L Creatinine 0.59 L (0.66-1.25) mg/dL Glucose 158 H (74-99) mg/dL POC Glucose (mg/dL) 178 H (70-110) mg/dL Total Protein 5.5 L (6.3-8.2) g/dL Albumin 3.3 L (3.5-5.0) g/dL Assessment and Plan Plan: Acute exacerbation of COPD with secondary acute on top of chronic hypoxic/hypercapnic respiratory failure and questionable left lower lobe pulmonary infiltrate/pneumonia. Viral 4 Plex was negative. The patient is currently is currently off BiPAP and treated with Bactrim by nasal cannula Advanced COPD, maintained on Trelegy Ellipta on outpatient basis in combination with ProAir rescue inhaler, albuterol updrafts and oxygen. The patient is a chronic smoker and is maintained on 3 days of oxygen by nasal cannula Acute on top of chronic shortness of breath secondary to above, improving Coronary artery disease with previous history of cardiac catheterization in 2022, showed 20% left main, 40 to 50% of the mid LAD, 60 to 70% circumflex and 30% RCA. No intervention was done and the patient was offered medical therapy. Elevated trop I, 0.4 x2, likely demand type of myocardial ischemia, being considered for dobutamine cardiac stress test Hyponatremia, hypochloremic, currently on IV fluids, normal saline at rate of 75 cc an hour Critical stenosis left carotid artery status post left carotid endarterectomy on 06/05/2023 Hypertension Hyperlipidemia Diabetes mellitus type 2 on Mounjaro 2.5 mg Basal cell carcinoma with surgical removal and skin graft on left side of the face Tobacco abuse, 1/2 PPD Smoker Oxygen at 2 L/min nasal cannula and the patient is currently off the BiPAP Continue DuoNeb nebulizer he was on the clock Allow the patient to utilize Trelegy Ellipta from home IV Solu-Medrol 60 mg every 6 hours Empiric antibiotic coverage with IV Rocephin and doxycycline Monitor electrolytes including sodium level Continue IV fluids normal saline at rate of 75 cc an hour Dobutamine cardiac stress test [facility] Smoking cessation counseling Will continue to follow
[2024-07-06 16:31] LABS: Glucose,Whole Blood 228 mg/dL (70-110)
[2024-07-06] MEDS: NICOTINE 14MG/24HR PATCH TRANSDERM SCH (17:57)
[2024-07-06 19:34] LABS: Glucose,Whole Blood 241 mg/dL (70-110)
[2024-07-07] MEDS ORDERED: DOBUTamine DRIP for NUC MED 500 MG in DEXTROSE/WATER 1 250ML.BAG IV PRN (05:00)
[2024-07-07 05:55] LABS: Glucose,Whole Blood 204 mg/dL (70-110)
[2024-07-07 08:40] LABS: Basophils % (A) 0 %; Eosinophils % (A) 0 %; HCT 37.8 % (39.0-53.0); HGB 12.7 gm/dL (13.0-17.5); Lymphocytes # (A) 0.2 k/uL (1.0-4.8); Lymphocytes % (A) 3 %; MCH 31.8 pg (25.0-35.0); MCHC 33.6 g/dL (31.0-37.0); MCV 94.8 fL (80.0-100.0); Mean Platelet Volume 7.9; Monocytes # (A) 0.3 k/uL (0-1.0); Monocytes % (A) 3 %; Neutrophils % (A) 93 %; Platelet Count 172 k/uL (150-450); RBC 3.99 m/uL (4.30-5.90); RDW 13.9 % (11.5-15.5); WBC 8.5 k/uL (3.8-10.6)
[2024-07-07 08:56] LABS: ALT 22 U/L (4-49); AST 26 U/L (17-59); African American GFR (CKD) >90 (>60 ml/min/1.73 sqM); Albumin 3.5 g/dL (3.5-5.0); Alkaline Phosphatase 65 U/L (38-126); Anion Gap 3 mmol/L; Blood Urea Nitrogen 12 mg/dL (9-20); Calcium 8.5 mg/dL (8.4-10.2); Carbon Dioxide 30 mmol/L (22-30); Chloride 94 mmol/L (98-107); Glucose 180 mg/dL (74-99); Non-African American GFR(CKD) >90 (>60 ml/min/1.73 sqM); Potassium 4.2 mmol/L (3.5-5.1); Sodium 127 mmol/L (137-145); Total Bilirubin 0.4 mg/dL (0.2-1.3); Total Protein 5.7 g/dL (6.3-8.2)
[2024-07-07 09:16] VITALS: RESP 18
[2024-07-07] MEDS ORDERED: guaiFENesin 600 MG TABLET.ER PO PRN (10:12)
[2024-07-07 11:48] LABS: Glucose,Whole Blood 176 mg/dL (70-110)
--- NOTE | 2024-07-07 12:14 | CA ---
Dobutamine Stress Echocardiogram Report Angel Roy Age: 69 Gender: M : 1955 Exam Date: 07/07/2024 10:43 Exam Location: [facility] Ordering Physician: Rory Colby MD ([id number]) Referring Physician: NAV, Certified Respiratory Therapist: TERESA Technologist: Ht (in): 68 Wt (lb): 201 Procedure CPT: Indication: dyspnea on exertion ICD-9 Codes: Rhythm: Patient History: DIFFICULTY IN BREATHING, Cardiac Medications: Medications in past 24 hours: Contrast: Definity Total Dose (mL): 2 Stress Results Protocol: Dobutamine Peak Dose (???g/kg/min): 40 Duration (min:sec): Atropine:(mg) N/A Target HR: 128 Double Product: [id number] Resting HR: 64 Resting BP: 150 / 69 Peak HR: 119 Peak BP: 207 / 69 Max Predicted HR: 150 79 % Max Predicted HR Stress Summary: BP Response: Reason for Termination: DIRECTED PER DR/LOG SORTER Cardiac Symptoms: NO SYMPTOMS ECG Analysis Resting EKG: Stress EKG: Arrhythmia: Echo Analysis Base Echo Analysis: Low Echo Anaylsis: Peak Echo Analysis: Recovery Echo: MEASUREMENTS (Male/Female) Normal Values CONCLUSIONS Indication for the procedure: Syncope and shortness of breath on exertion, history of smoking history of dyslipidemia, family history of CAD No ECG or echocardiographic evidence for ischemia on dobutamine stress echo. Definity contrast was used PVCs and ventricular couplets during dobutamine infusion Peak blood pressure 203/[address] Reggie Almanza MD (Electronically Signed) Final Date: 07 July 2024 12:13
[2024-07-07] MEDS ORDERED: hydroCHLOROthiazide 25 MG TAB PO SCH (12:45)
--- NOTE | 2024-07-07 13:48 | P.PN ---
Subjective HISTORY OF PRESENT ILLNESS: 77-year-old male with known to Dr. Pina. Prior history of moderate nonobstructive coronary artery disease. Last cath in 2022 shows 20% left main disease, 40 to 50% mid LAD, 60 to 70% and small caliber ramus, 20 to 30% and LCx, 20 to 30% in RCA. He presented to the hospital because of increased worsening shortness of breath. He has prior history of COPD chronic hypoxia on 3 L oxygen only at nighttime.. On 3 L on admission he was saturating well Katya he was noticed to be hypercapnic with respiratory acidosis on ABG. Chest x-ray does not show any significant pulmonary congestion or consolidation Admission Vitals: 160/79 mmHg, heart rate 68 bpm Admission Labs: A1c 5.7, troponin x 2 were negative, repeat troponin was elevated at 0.04 with a flat pattern, NT-proBNP 373, Admission EKG: Sinus rhythm Imaging: Chest x-ray does not show any significant consolidation or congestion Echo from this hospital admission shows an EF of 55 to 60%, No obvious regional wall motion abnormality, no significant valvular dysfunction reported 07/07/2024 Patient underwent dobutamine stress test this morning which was negative for ischemia. Patient currently denies chest pain or pressure. He denies shortness of breath. Blood pressures are elevated with a systolic in the 160s. Sodium today 127. PHYSICAL EXAM: VITAL SIGNS: Reviewed. GENERAL: Well-developed in no acute distress. NECK: Supple. No JVD or thyromegaly LUNGS: Respirations even and unlabored. Lungs essentially clear to auscultation bilaterally. HEART: Regular rate and rhythm. S1 and S2 heard. EXTREMITIES: Normal range of motion. No clubbing or cyanosis. Peripheral pulses intact. No lower extremity edema ASSESSMENT: # Dyspnea on exertion # Mildly elevated troponin likely type II SD, no evidence of ACS # Moderate nonobstructive CAD with 20% left main disease, 20% disease in RCA, LCx, 50% disease in LAD, 60 to 70% disease and small ramus. # Ex-smoker # PAD with prior left carotid endarterectomy # Hyponatremia # Essential hypertension # Alcohol use 4-5 beers per day PLAN: Continue current cardiac medications including amlodipine, aspirin, Lipitor, losartan, and metoprolol May resume hydralazine at discharge Do not resume oral Lasix upon discharge Patient is stable for discharge today from a cardiac standpoint No further inpatient recommendations from a cardiac standpoint We will sign off. Please reconsult if needed. Nurse practitioner note has been reviewed by physician. Signing provider agrees with the documented findings, assessment, and plan of care documented by FINISHING POWDER PRESS OPERATOR as a scribe. Objective - Vital Signs Vital signs: Vital Signs Temp 98.2 F 07/07/24 08:35 Pulse 78 07/07/24 12:19 Resp 18 07/07/24 12:19 BP 168/72 07/07/24 08:35 Pulse Ox 95 07/07/24 12:08 FiO2 40 07/05/24 09:54 Intake & Output 07/06/24 07/07/24 07/07/24 18:59 06:59 18:59 Intake Total 240 500 Balance 240 500 Weight 77.111 kg 91.9 kg Intake: Oral 240 500 Other: Voiding Method Toilet Toilet Toilet # Voids 1 2 - Labs CBC & Chem 7: 07/07/24 07:43 07/07/24 07:43 Labs: Abnormal Lab Results - Last 24 Hours (Table) 07/06/24 07/06/24 07/07/24 Range/Units 16:29 19:30 05:53 RBC (4.30-5.90) m/uL Hgb (13.0-17.5) gm/dL Hct (39.0-53.0) % Neutrophils # (1.3-7.7) k/uL Lymphocytes # (1.0-4.8) k/uL Sodium (137-145) mmol/L Chloride (98-107) mmol/L Creatinine (0.66-1.25) mg/dL Glucose (74-99) mg/dL POC Glucose (mg/dL) 228 H 241 H 204 H (70-110) mg/dL Total Protein (6.3-8.2) g/dL 07/07/24 07/07/24 07/07/24 Range/Units 07:43 07:43 11:46 RBC 3.99 L (4.30-5.90) m/uL Hgb 12.7 L (13.0-17.5) gm/dL Hct 37.8 L (39.0-53.0) % Neutrophils # 8.0 H (1.3-7.7) k/uL Lymphocytes # 0.2 L (1.0-4.8) k/uL Sodium 127 L (137-145) mmol/L Chloride 94 L (98-107) mmol/L Creatinine 0.55 L (0.66-1.25) mg/dL Glucose 180 H (74-99) mg/dL POC Glucose (mg/dL) 176 H (70-110) mg/dL Total Protein 5.7 L (6.3-8.2) g/dL Microbiology - Last 24 Hours (Table) 07/05/24 00:07 Blood Culture - Preliminary Blood
[2024-07-07 14:19] VITALS: PULSE 73
[2024-07-07 15:13] VITALS: BP 150/63; TEMP 98.4
--- NOTE | 2024-07-07 15:38 | P.PN ---
Subjective Progress Note Date: 07/07/24 Patient is a 69-year-old male history CHF, COPD presenting today for shortness of breath. On home 2 L oxygen typically. The patient is also maintained on Trelegy Ellipta 1 puff a day on an outpatient basis. Over the last week has had worsening shortness of breath today was the worst it has ever been. He has been using inhaler multiple times a day without improvement of symptoms. Tonight called due to patient's difficulty in breathing. On EMS arrival patient was tripoding, cyanotic with a pulse ox of 70% on room air, dyspneic. Accordingly, the patient was placed on a BiPAP and the patient remains on BiPAP at a pressure of 12 over 5 cm of water with an FiO2 of 100%. This current pulse ox is 97%. I reviewed the chest x-ray from the current admission and the patient has COPD with chronic interstitial changes. No evidence of any airspace disease. No evidence of any pneumonia. The white cell count of 8.4 with a hemoglobin of 14 and a platelet count of 150. Sodium level was low at 126, chloride was at 94, BUN was 17 with a creatinine of 0.5. LFTs are normal. Troponins were 0.040.04 and 0.02 respectively. The patient is a chronic smoker. He is known to have diabetes mellitus type 2 maintained on Mounjaro on an outpatient basis. He also has bilateral carotid artery disease and the patient has undergone a left carotid endarterectomy that was successful.) she drinks alc ohol and he also has hypertension. His FEV1 has been in the order of 46% of predicted based on the previous spirometry. His most recent low-dose CAT scan of the chest on 08/27/2023 showed no evidence of any lesions or malignancy. At the time of my evaluation, the patient seemed more comfortable. His FiO2 was dropped down to 40% and subsequently patient was transitioned to oxygen by nasal cannula. No altered mentation. No signs of any CO2 narcosis. The viral 4 Plex was negative. On 07/06/2024, the patient is being seen in follow-up. The patient is feeling better less short of breath compared to yesterday. The patient was taken off the BiPAP and the patient is currently on 3 L of oxygen by nasal cannula with a pulse ox of 94%. Denies having any chest pain. No pleurisy. No hemoptysis. The patient was also seen by cardiology and is being considered for a dobutamine echo stress test and a.m. Based on that, the beta-blockers have been placed on hold. In terms of his respiratory status, remains on DuoNeb nebulizer he was on the clock, he remains on IV Solu-Medrol 60 mg every 6 hours. Remains on empiric antibiotic coverage with IV Rocephin. He is also on doxycycline. Receiving Lovenox for DVT prophylaxis. White cell count of 8.6 with a hemoglobin 12.6 and a platelet count of 151. BUN 16 with a creatinine of 0.5 and a sodium levels at 125 and a chloride is 95. The patient remains on normal saline at rate of 75 cc an hour. No other significant events overnight. On 07/08/2024, the patient is feeling better. No specific complaints for now. He underwent a dobutamine cardiac stress test and the results were essentially negative and the patient is being possibly released home. No new complaints. No chest pain. Less bronchospastic and wheezy compared to yesterday. White cell count of 8.5 with a hemoglobin 12.7 and a platelet count of 172. BUN is 12 and a creatinine of 0.55. He is currently on 2 L of oxygen by nasal cannula with a pulse ox of 95%. He remains on Trelegy Ellipta 1 puff a day, albuterol nebulizers 4 times a day and he will be discharged home on a prednisone burst taper. Smoking cessation counseling was done. He is on metoprolol 50 mg p.o. twice daily, losartan 100 mg p.o. daily and hydralazine 50 mg p.o. 3 times daily. He is also on Norvasc 10 mg p.o. daily. Objective - Vital Signs Vital signs: Vital Signs Temp 98.2 F 07/07/24 08:35 Pulse 73 07/07/24 08:35 Resp 18 07/07/24 08:35 BP 168/72 07/07/24 08:35 Pulse Ox 94 L 07/07/24 08:35 FiO2 40 07/05/24 09:54 Intake & Output 07/06/24 07/07/24 07/07/24 18:59 06:59 18:59 Intake Total 240 500 Balance 240 500 Weight 77.111 kg 91.9 kg Intake: Oral 240 500 Other: Voiding Method Toilet Toilet Toilet # Voids 1 2 - Exam The patient appeared well nourished and normally developed. Vital signs as documented. The patient is currently on 3 L of oxygen by nasal cannula. Head exam is unremarkable. No scleral icterus or corneal arcus noted. Neck is without jugular venous distension, thyromegaly, or carotid bruits. C arotid upstrokes are brisk bilaterally. Lungs are diminished bilaterally along with scattered rhonchi scattered expiratory wheezes throughout the lung good bilaterally. Cardiac exam reveals the PMI to be normally sized and situated. Rhythm is regular. First and second heart sounds normal. No murmurs, rubs or gallops. Abdominal exam reveals normal bowel sounds, no masses, no organomegaly and no aortic enlargement. Extremities are nonedematous and both femoral and pedal pulses are normal. Examination of the skin revealed no evidence of significant rashes, suspicious appearing nevi or other concerning lesions. Neurologically, the patient is awake and alert and the patient does not have any focal neurological deficit. Cranial nerves are essentially intact. - Labs CBC & Chem 7: 07/07/24 07:43 07/07/24 07:43 Labs: Abnormal Lab Results - Last 24 Hours (Table) 07/06/24 07/06/24 07/06/24 Range/Units 12:04 16:29 19:30 RBC (4.30-5.90) m/uL Hgb (13.0-17.5) gm/dL Hct (39.0-53.0) % Neutrophils # (1.3-7.7) k/uL Lymphocytes # (1.0-4.8) k/uL Sodium (137-145) mmol/L Chloride (98-107) mmol/L Creatinine (0.66-1.25) mg/dL Glucose (74-99) mg/dL POC Glucose (mg/dL) 197 H 228 H 241 H (70-110) mg/dL Total Protein (6.3-8.2) g/dL 07/07/24 07/07/24 07/07/24 Range/Units 05:53 07:43 07:43 RBC 3.99 L (4.30-5.90) m/uL Hgb 12.7 L (13.0-17.5) gm/dL Hct 37.8 L (39.0-53.0) % Neutrophils # 8.0 H (1.3-7.7) k/uL Lymphocytes # 0.2 L (1.0-4.8) k/uL Sodium 127 L (137-145) mmol/L Chloride 94 L (98-107) mmol/L Creatinine 0.55 L (0.66-1.25) mg/dL Glucose 180 H (74-99) mg/dL POC Glucose (mg/dL) 204 H (70-110) mg/dL Total Protein 5.7 L (6.3-8.2) g/dL Microbiology - Last 24 Hours (Table) 07/05/24 00:07 Blood Culture - Preliminary Blood Assessment and Plan Plan: Acute exacerbation of COPD with secondary acute on top of chronic hypoxic/hypercapnic respiratory failure and questionable left lower lobe pulmonary infiltrate/pneumonia. Viral 4 Plex was negative. The patient is stable, respiratory status is back to his baseline. Advanced COPD, maintained on Trelegy Ellipta on outpatient basis in combination with ProAir rescue inhaler, albuterol updrafts and oxygen. The patient is a chronic smoker and is maintained on 3 days of oxygen by nasal cannula Acute on top of chronic shortness of breath secondary to above, improving Coronary artery disease with previous history of cardiac catheterization in 2022, showed 20% left main, 40 to 50% of the mid LAD, 60 to 70% circumflex and 30% RCA. No intervention was done and the patient was offered medical therapy. Elevated trop I, 0.4 x2, likely demand type of myocardial ischemia, being considered for dobutamine cardiac stress test Hyponatremia, hypochloremic, currently on IV fluids, normal saline at rate of 75 cc an hour Critical stenosis left carotid artery status post left carotid endarterectomy on 06/05/2023 Hypertension Hyperlipidemia Diabetes mellitus type 2 on Mounjaro 2.5 mg Basal cell carcinoma with surgical removal and skin graft on left side of the face Tobacco abuse, 1/2 PPD Smoker Plan Clinically improving. Less bronchospastic and wheezy compared to yesterday. He feels that his overall respiratory status is back to his baseline. Oxygen at 2 L/min nasal cannula Continue DuoNeb nebulizer he was on the clock Allow the patient to utilize Trelegy Ellipta from home IV Solu-Medrol 60 mg every 6 hours and the patient was with switch to prednisone burst taper at time of discharge No need for further antibiotic treatment Monitor electrolytes including sodium level Dobutamine cardiac stress test completed and the results were negative for any reversible ischemia Lovenox for DVT prophylaxis Smoking cessation counseling Will continue to follow Possible home today to be followed up on outpatient basis.
--- NOTE | 2024-07-09 09:40 | P.DS ---
Providers Date of admission: 07/05/24 01:49 Expected date of discharge: 07/07/24 Attending physician: Shauna Benson Consults: 07/05/24 01:45 Consult Physician Routine Consulting Provider: Wily Anne Consult Reason/Comments: COPD exacerbation Do you want consulting provider notified?: Yes, Notify in am Primary care physician: Shauna Benson [facility] Hospital Course: Discharge diagnosis Acute exacerbation of chronic obstructive pulmonary disease Acute on chronic hypoxic and hypercapnic respiratory failure Elevated troponin leve Hyponatremia continue normal saline at 75 l Underlying history of coronary artery disease, with cardiac catheterization in 2022 revealed moderate coronary artery disease no intervention done Underlying history of hypertension Underlying history of hyperlipidemia Underlying history of carotid stenosis with history of left carotid endarterectomy Underlying history of diabetes mellitus type 2 Continued tobacco abuse patient was counseled in length in regard to smoking cessation Previous history of basal cell carcinoma, with history of left facial surgery Hospital course Angel Roy, is a 69-year-old male who presented to [facility] emergency room with a chief complaint of worsening shortness of breath He was evaluated in the emergency room vital examination on presentation r evealed a temperature of 98.9 pulse 68 respiration 18 blood pressure 129/66 pulse ox 93% on 3 L nasal cannula Laboratory data revealed a white blood count of 8.4 hemoglobin 14.0 platelet count 150 sodium 126 potassium 4.4 chloride 94 CO2 23 BUN 17 creatinine 0.56 Testing in the emergency room revealed chest x-ray revealed bilateral lower lung opacities may represent atelectasis versus infectious process EKG revealed sinus rhythm with minimal ST depression in the lateral leads Patient was admitted to medical floor for further evaluation and treatment On 07/06/2024 patient is alert and oriented x 3. Sodium low at 125 continue 0.9 at 75 and recheck in a.m. Patient does report he drinks 4-5 beers a day we will add alcohol withdrawal protocol. Pulmonary and cardiology services are following patient remains on antibiotics for pneumonia. Patient remains on IV Solu-Medrol. Per cardiology possible stress test. At this time patient denies chest pain or shortness of breath. Patient denies nausea vomiting or diarrhea. Patient denies any urinary burning or frequency On 07/06/2024 patient is alert and oriented x 3. Patient has been cleared for discharge patient to follow-up with cardiology and pulmonary services for further management. Patient will be DC'd on prednisone taper. Patient Condition at Discharge: Stable Plan - Discharge Summary Discharge Rx Participant: No New Discharge Prescriptions: New guaiFENesin [Mucinex] 600 mg PO Q12HR PRN 10 Days #20 tab PRN Reason: Cough predniSONE 10 mg PO DAILY 12 Days #30 tab Nicotine 14Mg/24Hr Patch [Habitrol] 1 patch TRANSDERM DAILY 30 Days #30 patch Continue Albuterol Sulfate [Albuterol Sulfate Hfa] 1 - 2 puff INHALATION RT-QID PRN PRN Reason: Shortness Of Breath Primidone [Mysoline] 50 mg PO TID Rosuvastatin [Crestor] 20 mg PO DAILY Metoprolol Tartrate [Lopressor] 50 mg PO BID hydrALAZINE HCL [Apresoline] 50 mg PO TID Vitamin B Complex 1 cap PO DAILY Albuterol Nebulized [Ventolin Nebulized] 2.5 mg INHALATION RT-QID HYDROcodone/APAP 7.5-325MG [[place] 7.5-325] 1 tab PO TID Tirzepatide [Mounjaro] 2.5 mg SQ TU Fluticasone/Umeclidin/Vilanter [Trelegy Ellipta 100-62.5-25] 1 puff INHALATION RT-DAILY Losartan Potassium [Cozaar] 100 mg PO DAILY amLODIPine [Norvasc] 10 mg PO DAILY Aspirin EC [Ecotrin Low Dose] 81 mg PO DAILY Discontinued Furosemide [Lasix] 20 mg PO DAILY Discharge Medication List Albuterol Nebulized [Ventolin Nebulized] 2.5 mg INHALATION RT-QID 07/05/24 [History] Albuterol Sulfate [Albuterol Sulfate Hfa] 1 - 2 puff INHALATION RT-QID PRN 07/05/24 [History] Aspirin EC [Ecotrin Low Dose] 81 mg PO DAILY 07/05/24 [History] Fluticasone/Umeclidin/Vilanter [Trelegy Ellipta 100-62.5-25] 1 puff INHALATION RT-DAILY 07/05/24 [History] HYDROcodone/APAP 7.5-325MG [[place] 7.5-325] 1 tab PO TID 07/05/24 [History] Losartan Potassium [Cozaar] 100 mg PO DAILY 07/05/24 [History] Metoprolol Tartrate [Lopressor] 50 mg PO BID 07/05/24 [History] Primidone [Mysoline] 50 mg PO TID 07/05/24 [History] Rosuvastatin [Crestor] 20 mg PO DAILY 07/05/24 [History] Tirzepatide [Mounjaro] 2.5 mg SQ TU 07/05/24 [History] Vitamin B Complex 1 cap PO DAILY 07/05/24 [History] amLODIPine [Norvasc] 10 mg PO DAILY 07/05/24 [History] hydrALAZINE HCL [Apresoline] 50 mg PO TID 07/05/24 [History] Nicotine 14Mg/24Hr Patch [Habitrol] 1 patch TRANSDERM DAILY 30 Days #30 patch 07/07/24 [Rx] guaiFENesin [Mucinex] 600 mg PO Q12HR PRN 10 Days #20 tab 07/07/24 [Rx] predniSONE 10 mg PO DAILY 12 Days #30 tab 07/07/24 [Rx] Follow up Appointment(s)/Referral(s): Abdulkadir Pina DO [STAFF PHYSICIAN] - 1 Week (July 14, 8:45) Shauna Benson MD [Primary Care Provider] - 1-2 days (July 09 10:00) Oli Mack MD [STAFF PHYSICIAN] - 1 Week (July 23 09) Patient Instructions/Handouts: COPD (Chronic Obstructive Pulmonary Disease) (DC) Activity/Diet/Wound Care/Special Instructions: activity limited until follow up smoking cessation encouraged heart healthy/consistent carbohydrate diet Discharge/Stand Alone Forms: [facility], Who Do I Call?, Outpatient Counseling, Inp Substance Abuse Facilities Discharge Disposition: HOME WITH HOME HEALTH SERVICES
== END 2024-07-07 15:08 | disposition home health service (06) | DRG 189 ==
LOC: EC 23:41 → 3SCARD 07-05 01:49
PROVIDERS: ADMIT Internal Medicine; ATTEND Internal Medicine
PROC: 4A02XM4 Measurement of Cardiac Total Activity, External Approach (ICD-10-PCS; principal; 2024-07-07)
PROC: 3E073KZ Introduction of Other Diagnostic Substance into Coronary Artery, Percutaneous Approach (ICD-10-PCS; 2024-07-07)
DX: J96.21 Acute and chronic respiratory failure with hypoxia (principal); I21.A1 Myocardial infarction type 2; E87.1 Hypo-osmolality and hyponatremia; E87.29 Other acidosis; J44.1 Chronic obstructive pulmonary disease with (acute) exacerbation; E11.9 Type 2 diabetes mellitus without complications; I11.0 Hypertensive heart disease with heart failure; J96.22 Acute and chronic respiratory failure with hypercapnia; I50.9 Heart failure, unspecified; Z11.52 Encounter for screening for COVID-19; I25.10 Atherosclerotic heart disease of native coronary artery without angina pectoris; F41.9 Anxiety disorder, unspecified; E78.5 Hyperlipidemia, unspecified; F17.210 Nicotine dependence, cigarettes, uncomplicated; Z71.6 Tobacco abuse counseling; Z79.02 Long term (current) use of antithrombotics/antiplatelets; Z79.82 Long term (current) use of aspirin; Z79.899 Other long term (current) drug therapy; Z82.5 Family history of asthma and other chronic lower respiratory diseases; Z85.828 Personal history of other malignant neoplasm of skin; Z91.041 Radiographic dye allergy status
CPT/HCPCS: 36415; 36600; 71045; 80053; 80061; 82805; 83036; 83605; 83880; 84484; 85025; 85610; 85730; 87040; 87636; 93005; 93306; 93351; 94640; 94660; 94760; 96361; 96365; 96366; 96367; 96368; 96372; 96375; 96376; 99285

== ENCOUNTER → 2024-07-20 | Outpatient (CLI) | payer MEDICARE, OTHER ==
--- NOTE | 2024-07-20 10:56 | US ---
EXAMINATION TYPE: US venous doppler duplex LE LT DATE OF EXAM: 07/20/2024 10:43 AM COMPARISON: NONE CLINICAL INDICATION: Male, 69 years old with history of M79.662 PAIN IN LEFT LOWER LEG; Left leg swel ling x 1 day. Pt states it gets better when laying down. No hx of DVT. Not on blood thinners TECHNIQUE: The lower extremity deep venous system is examined utilizing real time linear array sonog serena with graded compression, color doppler sonography, and spectral doppler. SIDE PERFORMED: Left FINDINGS: VESSELS IMAGED: Common Femoral Vein Deep Femoral Vein Greater Saphenous Vein * Femoral Vein Popliteal Vein Small Saphenous Vein * Proximal Calf Veins (* superficial vessels) Left Leg: No evidence for DVT, Color Doppler imaging shows patency of the vessels. Spectral waveform s are within normal limits. IMPRESSION: No evidence for DVT within the left lower extremity imaged from the groin to the upper calf. [facility], , 07/20/2024 10:53 AM
== END | disposition home or self-care (01) ==
LOC: RADUSWWP 10:24
PROVIDERS: ATTEND Internal Medicine
DX: M79.662 Pain in left lower leg (principal)

== ENCOUNTER → 2024-07-23 | Outpatient (CLI) | payer MEDICARE, OTHER ==
[2024-07-23 15:24] LABS: BUN/Creat Ratio 15.57 Ratio (12.00-20.00); Blood Urea Nitrogen 10.9 mg/dL (9.0-27.0); Calcium 8.6 mg/dL (8.7-10.3); Carbon Dioxide 25.5 mmol/L (21.6-31.8); Chloride 93 mmol/L (96-109); Glucose 131 mg/dL (70-110); Potassium 4.1 mmol/L (3.5-5.5); Sodium 129 mmol/L (135-145)
== END | disposition home or self-care (01) ==
LOC: LABWHC1 12:23
PROVIDERS: ATTEND Nurse Practitioner Acute Care
DX: R60.0 Localized edema (principal)
CPT/HCPCS: 36415; 80048

== ENCOUNTER → 2024-08-25 | Outpatient (CLI) | payer MEDICARE, OTHER ==
--- NOTE | 2024-08-25 15:43 | CTL ---
EXAMINATION TYPE: CT Low Dose Lung DATE OF EXAM ORDERED: 08/25/2024 COMPARISON: Prior CT August 25, 2023 CLINICAL INDICATION: Male, 69 years old with history of Z12.2 LUNG CA SCR Z87.891 FORMER SMOKER; [facility], Lung Cancer Screening, Former Smoker, Lung cancer screening, History of Smoking/tobacco use. TECHNIQUE: Low dose computed tomography scan was performed through the chest at 1 mm thick sections a nd reconstructed images in multiple planes at 1 mm and [address] DLP: 140.[address] CTDI: 3.40 mGy Automated exposure control for dose reduction was used. CT DIAGNOSTIC QUALITY: Satisfactory FINDINGS: Nodules: A few tiny nodules. Reference is 2 to 3 mm left upper lobe nodule image 88. No greater than 4 mm pulmonary nodules. LUNGS: COPD: Severity: Mild Fibrosis: Severity: None Lymph nodes: No greater than 1 cm Other findings: None RIGHT PLEURAL SPACE: Effusion: None Calcification: None Thickening: None Pneumothorax: None LEFT PLEURAL SPACE: Effusion: None Calcification: None Thickening: None Pneumothorax: None HEART: Heart Size: Normal Coronary Calcification: Large Pericardial Effusion: None OTHER FINDINGS: Upper abdomen: None Bony thorax: Multilevel spurring Supraclavicular region: None Other: Enlarged main pulmonary artery raises concern for underlying pulmonary artery hypertension IMPRESSION: No suspicious new or enlarging greater than 4 mm noncalcified pulmonary nodules CT LUNG RAD AND CT CHEST RECOMMENDATION: Lung-Rad 2 Benign Appearance or Behavior: Continue annual sc reening with LDCT in 12 months. S Modifier (other clinically significant findings): S Severe three-vessel coronary artery calcifications should be correlated with additional cardiac risk factors. [facility], , 08/25/2024 3:41 PM
== END | disposition home or self-care (01) ==
LOC: RADCTMAIN 10:17
PROVIDERS: ATTEND Internal Medicine Critical Care Medicine
DX: Z12.2 Encounter for screening for malignant neoplasm of respiratory organs (principal); J44.9 Chronic obstructive pulmonary disease, unspecified; Z87.891 Personal history of nicotine dependence
CPT/HCPCS: 71271